=== PATIENT | male | born 1960 | race Caucasian/White ===

== ENCOUNTER → 2017-08-25 13:43 | Outpatient (CLI) | payer MEDICAID, SELFPAY ==
--- NOTE | 2017-08-25 13:49 | VDLE_ITS ---
Reason For Study: LEG PAIN RIGHT LEFT GSV is normal. CFV is compressible, spontaneous, phasic, CFV is compressible, spontaneous, phasic, competent, and demonstrates normal competent and demonstrates normal augmentation. augmentation. FV is compressible, spontaneous, phasic, competent and demonstrates normal augmentation. POP V is compressible, spontaneous, phasic, competent and demonstrates normal augmentation. T/P Trunk is compressible. PTV is compressible. RT PerV is compressible. SSV partially compressible with intraluminal echoes from mid calf to ankle. Procedure Exam performed in department. A preliminary report was called and/or faxed to Ted Sandoval. Interpretation Summary Deep veins of the right lower extremity are patent and compressible segmentally. There is no evidence of right lower extremity deep vein thrombosis. Valvular competence appears intact within the proximal deep venous system on the right . The right greater saphenous vein appears patent and compressible segmentally. Acute and chronic superficial thrombophlebitis is noted in the right small saphenous vein from the right mid-calf to the ankle. Ordering Physician: ANGELIC VALLADARES Referring Physician: Tresa Kaye Performed By: Shivani Kelely RVT
== END ==
DX: M79.604 Pain in right leg (principal)
CPT/HCPCS: 93971

== ENCOUNTER 2017-08-26 12:51 | Emergency (ER) | payer MEDICAID, SELFPAY ==
[2017-08-26 12:52] VITALS: BP 176/115; PULSE 73; RESP 16; TEMP 36.2; O2SAT 100; BMI 21.9
--- NOTE | 2017-08-26 13:26 | ED.VISSUMM ---
- ER Visit Summary Date of Service: 08/26/17 Chief Complaint: [Right leg pain] History of Present Illness: The patient is a 57 M [presents to the emergency department with complaint of pain in his right leg for 3-4 months. Patient denies any trauma. Patient states that he was seen by the [facility] yesterday and had venous Doppler obtained of his right lower extremity which showed some superficial clot but is not scheduled to see the [facility] until 3 days from today. Patient denies any chest pain or shortness of breath. Patient denies any trauma to his leg. Patient denies recent travel or surgery. Patient states that he is having pain with walking. Patient does have a history of chronic back pain. Patient denies any pain in his buttock but states that the pain starts mid thigh and goes down to the foot.] Physical Examination: [HEENT-PERRLA, EOMI. Cranial nerves II through XII grossly intact. TMs clear. Mucous membranes moist. No adenopathy. Cardiovascular-regular rate and rhythm without murmur or ectopy Lungs-clear to auscultation, chest wall stable without crepitus or subcu emphysema Abdomen-normoactive bowel sounds, soft, nontender, no rebound or rigidity, no peritoneal signs. Back exam-no significant tenderness over the thoracic or lumbar spine. Patient has negative straight leg raises bilaterally. Deep tendon reflexes are plus 2 out of 4 bilaterally at the patella and Achilles. Patient has normal L5 extension. Extremities-intact ?4, normal range of motion, normal pulses, atraumatic]. Patient has some mild edema noted especially around the ankle with +1 pitting. Patient has some superficial varicosities noted. Patient has normal sensation. Patient has normal strength in both lower extremities. Test Results: [None indicated] Emergency Department Course and Treatment: [I did review the patient's venous duplex from yesterday which did show superficial saphenous vein to be partially compressible with intraluminal echoes from mid calf to ankle. There was no evidence of DVT.] Treatment Plan: [Patient advised to use ibuprofen and warm compresses to the calf. Patient will be given a prescription for Lindon for severe pain. Agent to keep his appointment in 3 days with the [facility].] Disposition: Discharge to home in stable condition. Patient advised to return if worsening pain, weakness in the extremity, redness or fever, or condition should worsen in any way. [] Impression: [Leg pain Superficial thrombophlebitis right leg] This note was generated with S[employer] dictation software. It may contain incorrect words, spelling, and punctuation that were not noted in review of the chart prior to signing ED Disposition - Plan for ED Patient: Chief Complaint: Lower Extremity Injury Referrals: Олег Ramirez,Victoria Lynn [Primary Care Provider] -
--- NOTE | 2017-08-26 13:30 | ED.DCSUM_ITS ---
- ER Visit Summary Date of Service: 08/26/17 Chief Complaint: [Right leg pain] History of Present Illness: The patient is a 57 M [presents to the emergency department with complaint of pain in his right leg for 3-4 months. Patient denies any trauma. Patient states that he was seen by the [facility] yesterday and had venous Doppler obtained of his right lower extremity which showed some superficial clot but is not scheduled to see the [facility] until 3 days from today. Patient denies any chest pain or shortness of breath. Patient denies any trauma to his leg. Patient denies recent travel or surgery. Patient states that he is having pain with walking. Patient does have a history of chronic back pain. Patient denies any pain in his buttock but states that the pain starts mid thigh and goes down to the foot.] Physical Examination: [HEENT-PERRLA, EOMI. Cranial nerves II through XII grossly intact. TMs clear. Mucous membranes moist. No adenopathy. Cardiovascular-regular rate and rhythm without murmur or ectopy Lungs-clear to auscultation, chest wall stable without crepitus or subcu emphysema Abdomen-normoactive bowel sounds, soft, nontender, no rebound or rigidity, no peritoneal signs. Back exam-no significant tenderness over the thoracic or lumbar spine. Patient has negative straight leg raises bilaterally. Deep tendon reflexes are plus 2 out of 4 bilaterally at the patella and Achilles. Patient has normal L5 extension. Extremities-intact ?4, normal range of motion, normal pulses, atraumatic]. Patient has some mild edema noted especially around the ankle with +1 pitting. Patient has some superficial varicosities noted. Patient has normal sensation. Patient has normal strength in both lower extremities. Test Results: [None indicated] Emergency Department Course and Treatment: [I did review the patient's venous duplex from yesterday which did show superficial saphenous vein to be partially compressible with intraluminal echoes from mid calf to ankle. There was no evidence of DVT.] Treatment Plan: [Patient advised to use ibuprofen and warm compresses to the calf. Patient will be given a prescription for Omega for severe pain. Agent to keep his appointment in 3 days with the [facility].] Disposition: Discharge to home in stable condition. Patient advised to return if worsening pain, weakness in the extremity, redness or fever, or condition should worsen in any way. [] Impression: [Leg pain Superficial thrombophlebitis right leg] This note was generated with [employer] dictation software. It may contain incorrect words, spelling, and punctuation that were not noted in review of the chart prior to signing ED Disposition - Plan for ED Patient: Chief Complaint: Lower Extremity Injury Referrals: Олег Ramirez,Victoria Lynn [Primary Care Provider] -
--- NOTE | 2017-08-26 13:32 | DCINST.ED_ITS ---
ED Disposition - Plan for ED Patient: Chief Complaint: Lower Extremity Injury Instructions: ED Phlebitis Superficial Prescriptions: Hydrocodone Bitart/Apap 5-325 [[place] 5/325] 1 - 2 tab PO Q4H PRN PRN 5 Days #20 tab PRN Reason: Pain Referrals: Олег Ramirez,Victoria Lynn [Primary Care Provider] - 3-5 Days
[2017-08-26 13:38] VITALS: BP 139/99; PULSE 71; RESP 16; O2SAT 97
== END 2017-08-26 13:39 | disposition home or self-care (01) ==
PROVIDERS: Emergency Provider Emergency Medicine
DX: I80.01 Phlebitis and thrombophlebitis of superficial vessels of right lower extremity (principal); M79.604 Pain in right leg; M54.9 Dorsalgia, unspecified; G89.29 Other chronic pain; I10 Essential (primary) hypertension; Z79.51 Long term (current) use of inhaled steroids; Z79.899 Other long term (current) drug therapy
CPT/HCPCS: 99282

== ENCOUNTER 2018-02-06 08:55 | Emergency (ER) | payer MEDICAID, SELFPAY ==
[2018-02-06 08:56] VITALS: BP 155/105; PULSE 92; RESP 14; TEMP 35.9; BMI 19.5
--- NOTE | 2018-02-06 09:05 | ED.VISSUMM ---
- ER Visit Summary Date of Service: 02/06/18 Chief Complaint: Meehan pain bilaterally History of Present Illness: The patient is a 57 M who presents with 2-3 months of tenderness anterior meehan region. No calf pain no edema no fever or chills. Physical Examination: Otherwise normal exam he has got tenderness over the anterior shins, there is no calf tenderness negative Homans no edema. There are no nodes present. Emergency Department Course and Treatment: There are no signs or symptoms of DVT, there is no cellulitis no abscess. This is likely shinsplints he does walk quite a bit. He is told to wear restrictive socks or hose and otherwise will be discharged with anti-inflammatories. Discharge stable condition Impression: Shinsplints This note was generated with [employer] dictation software. It may contain incorrect words, spelling, and punctuation that were not noted in review of the chart prior to signing ED Disposition - Plan for ED Patient: Disposition: Home or Assisted Living Chief Complaint: Wound Instructions: Meehan Splints Prescriptions: Naproxen [Naprosyn] 500 mg PO BID PRN #20 tab Referrals: Victoria Cloud [Primary Care Provider] - 3-5 Days
--- NOTE | 2018-02-06 09:08 | ED.DCSUM_ITS ---
- ER Visit Summary Date of Service: 02/06/18 Chief Complaint: Meehan pain bilaterally History of Present Illness: The patient is a 57 M who presents with 2-3 months of tenderness anterior meehan region. No calf pain no edema no fever or chills. Physical Examination: Otherwise normal exam he has got tenderness over the anterior shins, there is no calf tenderness negative Homans no edema. There are no nodes present. Emergency Department Course and Treatment: There are no signs or symptoms of DVT , there is no cellulitis no abscess. This is likely shinsplints he does walk quite a bit. He is told to wear restrictive socks or hose and otherwise will be discharged with anti-inflammatories. Discharge stable condition Impression: Shinsplints This note was generated with [employer] dictation software. It may contain incorrect words, spelling, and punctuation that were not noted in review of the chart prior to signing ED Disposition - Plan for ED Patient: Disposition: Home or Assisted Living Chief Complaint: Wound Instructions: Meehan Splints Prescriptions: Naproxen [Naprosyn] 500 mg PO BID PRN #20 tab Referrals: Victoria Cloud [Primary Care Provider] - 3-5 Days
== END 2018-02-06 09:38 | disposition home or self-care (01) ==
PROVIDERS: Emergency Provider Emergency Medicine; Family Provider Student in an Organized Health Care Education/Training Program; PCP Student in an Organized Health Care Education/Training Program
DX: S86.892A Other injury of other muscle(s) and tendon(s) at lower leg level, left leg, initial encounter (principal); S86.891A Other injury of other muscle(s) and tendon(s) at lower leg level, right leg, initial encounter; X58.XXXA Exposure to other specified factors, initial encounter; Y93.89 Activity, other specified; Y92.89 Other specified places as the place of occurrence of the external cause; Y99.8 Other external cause status
CPT/HCPCS: 99282

== ENCOUNTER 2018-02-12 08:30 | Outpatient (RCR) | payer MEDICAID, SELFPAY ==
--- NOTE | 2018-01-05 12:27 | HP.PTEVAL_ITS ---
Patient's Visit Information PRASHANT CONNOR is a 57 year old M referred to Physical Therapy by Rei Morgan with a diagnosis of RADICULOPATHY LUMBAR REGION. Date of Evaluation: 01/05/18 Physical Therapist: Amanda Arauz - Visit Plan Frequency: 2-3x /Week Duration: 4-6 Weeks Plan: *NO LIFTING > 5 LBS*. *PATIENT HAS TUBES IN HIS EARS. AQUATIC THERAPY FOR PAIN RELEIF, POSTURE CORRECTION/STRENGTHENING, INSTRUCTION IN APPROPRIATE BODY MECHANICS AND ACTIVITY MODIFICATIONS. DLS STARTING WITH A NEUTRAL SPINE PROGRESSING ROM TOLERATED. NICHOLAS LE ROM, STRETCHING AND STRENGTHENING. HEP INSTRUCTION. - Subjective Subjective: Work/Leisure: UNEMPLOYEED. Disability: YES. WENT ON DISABILITY LAST YEAR FOR DDD AND NERVE DAMAGE. NECK PROBLEMS. Present symptoms: NICHOLAS LOW BACK PAIN. NICHOLAS LE PAIN, NUMBNESS AND TINGLING TO ANKLES. PATIENT DENIES FOOT SX'S. Present since: A LONG TIME AGO . Pain Scale: WORST 6/10, LEAST 4/ 10. Currently: 5/10. Commenced as a result of: A LOT OF HEAVY LIFTING . Symptoms at onset: BACK. Worse: BENDING, LIFTING, CLEANING HOUSE. Better: LYING DOWN. Disturbed sleep: NO. Previous history/Previous treatment: NO LOW BACK SURGERY. NO LOUIS'S IN LOW BACK. CHIROPRACTOR FOR LOW BACK YEARS AGO. Coughing/sneezing/straining: NEGATIVE. Gait: PATIENT REPORTS HE CAN'T WALK VERY FAR BUT HE DOES WALK FROM HIS PLACE TO A GROCERY STORE ABOUT 1/[address] STATES HE USUALLY DOES NOT USE AN AD BUT SOMETIMES A CANE. Difficulty initiating urinatin: NO. Accidents: NO MVA'S. NO FALLS SINCE LAST YEAR WHEN HE FX'D 3 RIBS - FELL OFF A LADDER CLEANING WINDOWS. Unexplained weight loss: NO. Imaging: PATIENT THINKS HE HAD X-RAYS AND MRI OF HIS LOWER BACK LAST YEAR SHOWING IT ISN'T GETTING BETTER. PMH: COPD, HTN, ALLERGIES. Recent major surgery: NECK SURGERY ABOUT 8 YEARS AGO AFTER FALLING DOWN STEPS AND BREAKING 3 DISCS. - Objective Sitting/Standing Posture: POOR. FORWARD HEAD. RETRACTED SHOULDERS. Lordosis : REDUCED. RIGHT ILIAC CREST SLIGHTLY HIGHER THAN LEFT. Lateral shift: NO. Relevant shift: N/A. Active Correction of posture: BETTER. Other Observations : INDEP GAIT INTO PT WITHOUT LOB OR ASSISTIVE DEVICE. INDEP TRANSFER SIT TO STAND WITHOUT UE ASSIST BUT DIFFICULT. Motor deficit: 5/5 NICHOLAS LE'S WITH MMT' ING. Sensory deficit: NICHOLAS LE LIGHT TOUCH INTACT AND SYMMETRICAL. ROM deficit: TIGHT NICHOLAS HS'S. TIGHT NICHOLAS GASTROC SOLEUS COMPLEX'S. Reflexes: UNABLE TO ELICIT NICHOLAS LE DTR'S. Dural Signs: NEGATIVE NICHOLAS LE'S. Lumbar mvmt loss: flex - MIN. ext - MOD TO TAYLOR. R SG - MOD. L SG - MOD. PATIENT REPORTS ONLY MILD INCREASED LOW BACK AND LEG PAIN WITH LUMBAR ROM TESTING ALL PLANES. Core strength: POOR. Palpation: NO ACUTE TENDERNESS WITH LUMBOPELVIC PALPATION. OTHER: MILD NICHOLAS LOWER LEG/ANKLE EDEMA. PATIENT REPORTS HIS DOCTOR IS AWARE OF THE SWELLING AND INSTRUCTED HIM IN LE ELEVATION. - Goals Goal 1:: DECREASE C/O LOW BACK AND NICHOLAS LE SX'S. Goal Time Frame: 4-6 Weeks Goal 2:: IMPROVE PERSONAL CARE, WALKING, SITTING, STANDING, SOCIAL LIFE, TRAVEL AND HOMEMAKING FUNCTION Goal Time Frame: 4-6 Weeks Goal 3:: INSTRUCT IN PROPHYLAXIS Goal Time Frame: 4-6 Weeks - Rehabilitation Potential Rehabilitation Potential: Good - Anticipated Interventions Patient/Client Instruction: Educate patient on: Condition, Plan of Care, Risk Factors, Benefits of Fitness Program For the Purpose of:: To improve self management Therapeutic Exercise to Include: Strength training, Body mechanics, Postural training, Flexibilty training, In an aquatic setting, Dynamic Lumbar Stabilization For the Purpose of:: To decrease pain, To decrease swelling/inflammation, To increase ROM, To improve muscle performance and motor function, To increase tolerance to activity/condition/position, To improve ability of physical actions for home/community/work/leisure, To improve gait and locomotor functions Thank you for the opportunity to evaluate your patient. For Medicare and Medicare HMO plans, please review the plan of care and approve it. It will need to be FAXED BACK to us at [phone] for Medicare purposes. Please let me know if there are questions or concerns regarding this plan of care. Physician Signature: Date:
--- NOTE | 2018-02-12 08:59 | HP.PTDCSUM_ITS ---
HP - PT D/C Summary It has been my pleasure to treat PRASHANT CONNOR under orders from Rei Morgan, for the diagnosis of RADICULOPATHY LUMBAR REGION for a total of 10 visit(s). Discharge Date: 02/12/18 Please see the following information for a summary of their discharge status. - Subjective Subjective: PATIENT REPORTS PHYSICAL THERAPY HAS HELPED LOOSEN UP MUSCLES AND BEING ABLE TO STAND UP STRAIGHT. IT ALSO TAUGHT HIM EX'S HE CAN DO AT HOME. PATIENT REPORTS HE CAN DO THE HOME EX'S ON HIS OWN BUT HE ISN'T SURE HE CAN GET TO A POOL. - Pain Bilateral Back Pain Intensity (Out of 10): 0 RLE Pain Intensity (Out of 10): 0 LLE Pain Intensity (Out of 10): 0 - Overall Improvement % Improvement: 50 - Objective Objective/Function: ALL GOALS MET. UPON EXAM, HE CONTINUES TO HAVE GOOD LE STRENGTH AND HIS POSTURE CONTROL HAS IMPROVED. Lumbar mvmt loss: flex - NIL. ext - MOD - PATIENT REPORTS THIS FEELS GOOD. R SG - MIN. L SG - MIN. PATIENT REPORTS ONLY MILD INCREASED LOW BACK ON RETURN FROM RIGHT SG. BUT OTHERWISE PATIENT REPORTS HIS BACK FELT GOOD WITH THE TESTING. Palpation: NO ACUTE TENDERNESS WITH LUMBOPELVIC PALPATION. OTHER: NO CHANGE IN LE EDEMA BUT HE REPORTS WHEN HE WEARS THE STOCKINGS IT HELPS. STATES HE GO T TWO PAIRS FROM [employer]. - Goals Goal 1:: DECREASE C/O LOW BACK AND NICHOLAS LE SX'S. Goal Progress: Goal Met Goal 2:: IMPROVE PERSONAL CARE, WALKING, SITTING, STANDING, SOCIAL LIFE, TRAVEL AND HOMEMAKING FUNCTION Goal Progress: Goal Met Goal 3:: INSTRUCT IN PROPHYLAXIS Goal Progress: Goal Met - Plan Plan: D/C TO HEP. PATIENT IS AGREEABLE. - D/C Information If there are questions or concerns regarding this patient's physical therapy, please feel free to call me at [phone]. Thank you for the referral of this patient. Sincerely, Amanda Arauz
== END 2018-02-12 19:00 | disposition home or self-care (01) ==
LOC: PT 08:30
PROVIDERS: Visit Provider Student in an Organized Health Care Education/Training Program
DX: M51.16 Intervertebral disc disorders with radiculopathy, lumbar region (principal); M51.36 Other intervertebral disc degeneration, lumbar region
CPT/HCPCS: 97113; 97162; 97164; 97530

== ENCOUNTER 2018-04-07 09:49 | Outpatient (RCR) | payer MEDICAID, SELFPAY ==
--- NOTE | 2018-04-07 13:29 | HP.PTEVAL_ITS ---
Patient's Visit Information PRASHANT CONNOR is a 57 year old M referred to Physical Therapy by Rei Mrogan with a diagnosis of Bilateral leg pain and balance disorder.. Date of Evaluation: 04/07/18 Physical Therapist: Anni Merritt - Visit Plan Plan: Pt. here for scooter assessment, will f/u with after determining eligibility for scooter. - Subjective Subjective: Pt. believes needs scooter because cannot walk far distances. Pt. limited by pain and loss of endurance. Walking for entire life, no driving license. 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 Can walk 1 mile before needs to s top. Posterior leg pain while walking, lumbar and posterior leg pain when sit after walk. Pain during walking 7/10, when rest 7/10. Worst pain in back this past week 5/10, best 3/10. Worst posterior leg pain 8/10, best 7/10. Relief when sitting if have not recently walked. Pain described as tightness in posterior legs. LBP described as achy. Seated with legs extended and elevated provides relief. Back pain relieved when supine. Sleep pretty well, just get up for restroom, pain does not wake up. Some tingling and numbness down to ankle, more signifcant in R leg; describes Raynauds in hands. Went to ER few months ago for bumps on leg, dx with meehan splints. Instructed to keep elevated; gave Vikodon-relieved some pain and relaxing. Ibprofen as needed provides a little relief. Put heat on back which helps. Ramp into apartment, standard doorway size; no stairs. 1 story, 3 rooms. No trouble getting around because there are things to hold on to including gaming, doorways, table. Always reaching for something to keep balance. 2 rugs in bedroom and 1 in bathroom. Shower/bathub threshold to step into and get to shower chair. Fearful when getting out. No trouble getting into bed. No trouble cooking or cleaning; difficult putting socks on. No AD because everything close together in apartment. Noticed legs giving out and losing balance once and a while. Pt. reports having trouble with ear drums being clogged and causing dizziness; never dx and tx;been going on for whole life. No recent falls; near fall long time ago but caught self. No difference in loss of balance in public with traffic. Sometimes lightheaded and see stars once and awhile, if seated or if stand to fast; has been occuring throughout life. Have not told physician about seeing stars. Does not drink much water, prefers iced tea. Live at home alone with cat; has not tripped over cat. Hernia year ago, tubes in ear every year. Take Rx medication but pt. claims not sure what for: gabatrin, allergy, HTN medication and 2 water pills. No changes in bowel/bladder. - Pain posterior bilat. leg Pain Intensity (Out of 10): 7 - Objective Gait: leans L as ambulate, forward trunk lean, good arm swing, functional mitzi- ambulated 800 feet in clinic. Posture: R shoulder elevated/L shoulder depressed, rounded shoulders, prefers to sit with both legs extended. Stairs: ascend reciprocally with 1 HR, slightly decreased mitzi but under control; descend reciprocally with 2 HR, moderate decrease in mitzi but under control. Dermatomes: L4 dermatome pt. described as feeling different but able to differentiate L vs. R. AROM: Lumbar flex., ext. rotation WFL, lat. flex bilat. to knee. Hip, knee, ankle WFL. Heel raise 100% and toe raise 50% with UE support on table. Strength: LE 5/5 throughout. Flexibility: hamstring mild restriction; gastroc and soleus moderate restriction. Palpation: no deformity along medial border R tibia; muscular hernia lateral anterior leg R side and along medial tibial border on L leg. Balance SL on L 7 seconds and on R 5 seconds with single hand support on table. Reflexes: patellar 2+ bilat. - Rehabilitation Potential Physical Therapy Diagnosis: Pt. presents with hypomobility. Moderate bilateral gastroc and soleus tightness and pain along with lumbar pain limiting patient from ambulating distances greater than one mile without pain. Rehabilitation Potential: Fair - Anticipated Interventions Thank you for the opportunity to evaluate your patient. For Medicare and Medicare HMO plans, please review the plan of care and approve it. It will need to be FAXED BACK to us at [phone] for Medicare purposes. Please let me know if there are questions or concerns regarding this plan of care. Physician Signature: Date:
== END 2018-04-07 19:00 | disposition home or self-care (01) ==
LOC: PT 09:49
PROVIDERS: Family Provider Student in an Organized Health Care Education/Training Program; PCP Student in an Organized Health Care Education/Training Program; Visit Provider Student in an Organized Health Care Education/Training Program
DX: M79.604 Pain in right leg (principal); M79.605 Pain in left leg; R26.89 Other abnormalities of gait and mobility
CPT/HCPCS: 97161

== ENCOUNTER 2020-10-24 13:32 | Emergency (ER) | payer MEDICARE, SELFPAY ==
[2020-10-24 13:32] VITALS: BP 146/110; PULSE 82; RESP 18; TEMP 36.8; O2SAT 99; BMI 21.1
--- NOTE | 2020-10-24 14:16 | ED.VISSUMM ---
- ER Visit Summary Date of Service: 10/24/20 Chief Complaint: Dysuria and difficulty urinating History of Present Illness: The patient is a 60 M with hypertension. States 2 weeks ago he was diagnosed with a UTI at an urgent care. Was placed on antibiotics felt it got better since last night has been having trouble urinating again. Denies any fever or chills. Initially with a UTI thought there was a small amount of blood he has not noticed any blood this time. No clots. He is on no blood thinners. No prostate history. No history of any kidney or bladder disease. He did urinate when he first got here for urinalysis. Physical Examination: Middle-aged male no acute distress vital signs stable afebrile. HEENT exam unremarkable. Neck nontender no lymphadenopathy. Lungs clear to auscultation. Heart regular rhythm no murmur. Abdomen soft nontender normal bowel sounds no peritoneal signs. Nondistended bladder. External exam unremarkable. Circumcised male. No masses. Moving all 4 extremities. No edema. Neurologically patient is awake alert with no focal motor deficits. Test Results: Seizure white count of 10. Hemoglobin 17. No bands chemistries unremarkable sodium 134 normal creatinine gap. Creatinine 0.9. Urinalysis 250 gross blood. 50-100 whites 50-100 reds no epithelial cells no bacteria a culture was sent. Bladder scan 475 post void residual. Repeat exam no change patient is doing well. He and I discussed my concern for urinary retention and the need for Allison catheter. Also possibly a UTI and would start him on antibiotics. Emergency Department Course and Treatment: Middle-aged male difficulty urinating. Consider BPH versus UTI versus other. Screening labs and urinalysis along with a bladder scan are being obtained. Treatment Plan: Allison catheter placed 16 Tristanian and follow-up with Dr. Duran of urology. Keflex 4 times daily for 10 days for possible UTI and urine culture sent. Disposition: Discharge Impression: Acute dysuria and urinary retention Rule out UTI Allison catheter placed This note was generated with [employer] dictation software. It may contain incorrect words, spelling, and punctuation that were not noted in review of the chart prior to signing ED Disposition - Plan for ED Patient: Referrals: Rei Morgan DO [Primary Care Provider] -
[2020-10-24 14:30] LABS: Bacteria 0 SEEN /hpf (None Seen); Color, Urine Straw (Yellow); Glucose, Dipstick Normal (Normal); Ketone-Dipstick Negative (Negative); Leukocyte Esterase-Dipstick 500 /ul (Negative); Mucous, Urine 0 SEEN /hpf (<or=2+); Nitrite-Dipstick Negative (Negative); Occult Blood-Urine 250 /ul (Negative); Protein-Dipstick 500 mg/dl (Negative); Squamous Epithelial Cells - UA 0 SEEN /hpf (0-5); Urine Bilirubin Dipstick Negative (Negative); Urine Clarity Cloudy (Clear); Urine Urobilinogen Normal (Normal)
[2020-10-24 14:37] LABS: Red Blood Cells-Urine 50-100 SEEN /hpf (0-5); White Blood Cells 50-100 SEEN /hpf (0-5)
[2020-10-24 14:39] LABS: Absolute Lymphocyte Count 1.37 X10^3/uL (0.83-4.51); Absolute Neutrophil Count 8.5 X10^3/uL (2.0-7.7); Basophil# 0.06 X10^3/uL; Basophil% 0.6 % (0-1); Eosinophil# 0.02 X10^3/uL; Eosinophils% 0.2 % (0-5); Hematocrit 49.7 % (40-54); Hemoglobin 17.2 g/dL (13.0-16.5); Lymphocyte # 1.37 X10^3/ul (0.83-4.51); Lymphocyte % 12.6 % (19-41); Mean Corp Hgb Conc 34.6 g/dL (32-36); Mean Corpuscular Hgb 33.1 pg (27.0-32.0); Mean Corpuscular Volume 95.6 fL (80-94); Mean Platelet Vol. 9.5 fl (6.2-12.0); Monocyte# 0.87 X10^3/uL; NRBC Flagged by Analyzer 0 % (0-5); Neutrophil # 8.46 X10^3/uL (2.7-7.7); Platelet Count 245 K/mm3 (150-450); RBC Distribution Width CV 12.8 % (11.6-14.6); RBC Distribution Width SD 45.5 fl (35.1-43.9); White Blood Count 10.9 K/mm3 (4.4-11.0)
[2020-10-24 14:52] LABS: Anion Gap 6 (5-15); BUN 12 mg/dL (7-18); BUN/Creat Ratio 12.6 RATIO (10-20); Calcium,Total 9.1 mg/dL (8.5-10.1); Chloride 98 mmol/L (98-107); Creatinine, Serum 0.96 mg/dL (0.70-1.30); EST Glomerular Filtration Rate 86 mL/min (>60); Est Glom Filt Rate - Afr Amer 104 mL/min (>60); Estimated Creatinine Clearance 73.89 ml/min; Glucose 101 mg/dL (74-106); Potassium 3.6 mmol/L (3.5-5.1); Sodium Level 134 mmol/L (136-145)
--- NOTE | 2020-10-24 15:07 | ED.DEP ---
ED Disposition - Plan for ED Patient: Disposition: Home or Assisted Living Instructions: ED Urinary Retention, Male Prescriptions: Cephalexin [Keflex] 500 mg PO Q6 #40 capsule Prescription Printed Referrals: Rei Morgan DO [Primary Care Provider] - As Needed Kali Burks MD [STAFF PHYSICIAN] - 3-5 Days Additional Instructions: Empty the Allison catheter when ever it is nearly full. Take the antibiotic Keflex 1 pill 4 times a day till gone. You have been prescribed this for 10 days. Call and follow-up with Dr. Ramsey Burks with urology or a urologist of your choice.
== END 2020-10-24 15:31 | disposition home or self-care (01) ==
PROVIDERS: Emergency Provider Emergency Medicine; PCP Student in an Organized Health Care Education/Training Program
DX: R30.0 Dysuria (principal); R33.9 Retention of urine, unspecified; I10 Essential (primary) hypertension; Z79.899 Other long term (current) drug therapy
CPT/HCPCS: 51702; 80048; 81001; 85025; 87077; 87086; 87088; 87186; 99284; A4216

== ENCOUNTER 2021-02-15 10:25 | Emergency (ER) | payer MEDICARE, SELFPAY ==
[2021-02-15 10:26] VITALS: BP 152/93; PULSE 57; RESP 16; TEMP 36.3; O2SAT 99; BMI 19.8
[2021-02-15 10:31] VITALS: BP 152/93; PULSE 57; RESP 16; O2SAT 99
--- NOTE | 2021-02-15 10:37 | EX.ED.DYSGE1 ---
HPI History of Present Illness Chief Complaint: Complaint Detail of Chief Complaint: Difficulty urinating since February 07 Narrative Narrative: Patient presents to the emergency department complaining of difficulty urinating throughout the day since February 07 when he had his Allison catheter removed. Patient states that he had some sort of a surgical procedure that was supposed to help him urinate more easily. His surgery was November 14 in [place]. Patient states that at night he is able to urinate because he can relax more but not able to urinate during the day. He complained of some burning with urination today. Patient states that he was supposed to get a urine sample to turn into the urologist office. He denies any fevers or chills or sweats. Prior similar symptoms: Yes [facility] Medical History (Updated 02/15/21 @ 11:[address] Mesfin Rajput DO) COPD (chronic obstructive pulmonary disease) Hypertension Home Medications bupropion HCl 150 mg PO BID 10/24/20 [History Last Taken Unknown] gabapentin 200 mg PO DAILY 10/24/20 [History Last Taken Unknown] hydrochlorothiazide 25 mg PO DAILY 10/24/20 [History Last Taken Unknown] metoprolol succinate 25 mg PO DAILY 10/24/20 [History Last Taken Unknown] amlodipine 5 mg PO DAILY 02/15/21 [History Last Taken Unknown] aspirin 81 mg PO DAILY 02/15/21 [History Last Taken Unknown] cephalexin 500 mg PO Q6 #28 capsule 02/15/21 [Rx Last Taken Unknown] oxybutynin chloride 10 mg PO DAILY 02/15/21 [History Last Taken Unknown] tiotropium bromide [Spiriva Respimat] 1 puff INHALATION DAILY 02/15/21 [History Last Taken Unknown] Allergy/AdvReac Type Severity Reaction Status Date / Time bee venom protein (honey bee) Allergy Anaphylaxis Verified 02/15/21 10:26 Social History Smoking Status: Former smoker ROS ROS ED Constitutional Constitutional ED: Reports systems reviewed and no addt'l complaints, except as documented; Denies body ache(s), change in weight or chills Eyes Eyes: Denies acute decrease in peripheral vision, change in vision, double vision or loss of vision ENT ENT ED: Reports none; Denies ear pain, lip swelling, loss taste/smell, neck pain, otalgia or sore throat Cardiovascular Cardiovascular: Reports none; Denies abdominal pain, chest pain with activity, leg edema, lightheadedness, palpitations, rapid heart rate or syncope Respiratory/Chest Respiratory/Chest: Reports none; Denies change in mental status, dry cough, dyspnea, hemoptysis, shortness of breath at rest or shortness of breath with exertion Gastrointestinal Gastrointestinal: Reports none; Denies abdominal pain, change in stool character, diarrhea, hematemesis, hematochezia, melena, rectal bleeding or vomiting Genitourinary Genitourinary ED: Reports none, dysuria and other Details: Urinary retention ; Denies abdominal discomfort, anuria, genital pain or polyuria Musculoskeletal Musculoskeletal: Reports none; Denies arthralgias, back pain, difficulty walking, extremity pain, muscle weakness or myalgias Integumentary Reports none; Denies abscess or rash Neurologic Neurologic: Reports none; Denies abnormal gait, confusion, focal weakness, frequent falls, headache(s), loss of vision, numbness, paresthesias, radicular pain, vertigo or weakness Psychiatric Psychiatric: Reports systems reviewed and no addt'l complaints, except as documented and none; Denies behavioral changes, confusion, difficulty concentrating, hallucinations, suicidal ideation, tactile hallucinations or visual hallucinations Endocrine Endocrinology: Denies none, cold intolerance, excessive sweating, fatigue or heat intolerance Hematologic/Lymphatic Hematologic/Lymphatic: Reports none; Denies anemia, easy bleeding or easy bruising Allergic/Immunologic Allergic/Immunologic ED: Denies as per HPI, none, lip swelling, mouth swelling, throat swelling, tongue swelling or hives EXAM Physical Exam Const Vital Signs: 02/15/21 10:26 02/15/21 10:31 Temperature 97.4 F L Temperature Source Temporal Pulse Rate 57 L 57 L Respiratory Rate 16 16 Blood Pressure 152/93 H 152/93 H Blood Pressure Mean 112 112 Pulse Ox 99 99 Oxygen Delivery Method Room Air Room Air Positive well nourished and well developed General Appearance ED: well developed and NAD HEENT Reports TM's clear and moist mucous membranes normocephalic and atraumatic; Negative for trauma or tenderness Tympanic Membrane ED: Yes TM's clear Eyes PERRL and EOMs intact bilaterally General Eye ED: Negative for pale conjunctiva or scleral icterus Neck no lymphadenopathy, supple and no JVD General: Negative for tenderness Chest Wall inspection of chest normal and palpation of chest normal Chest: Negative for tenderness Resp normal respiratory effort and clear to auscultation bilaterally Effort and Inspection: Negative for respiratory distress or pain with movement Auscultation: Negative for rhonchi, wheezes or diminished lung sounds Cardio regular rate, regular rhythm, S1 normal heart sound, S2 normal heart sound and no murmurs Peripheral Pulses: pulses 2+ throughout GI normal to inspection, nondistended, normoactive bowel sounds, soft to palpation, non-tender, non-distended and no masses Back/Spine no CVA tenderness and no thoracic nor lumbar tenderness Extremity normal to inspection General Extremety ED: Negative for edema General Extremity: Negative for edema Neuro oriented x3, CN's II-XII intact bilaterally, no sensory deficits noted and gait normal Sensorium / Orientation: awake, alert, oriented to person, oriented to place and oriented to time Motor Exam: strength 5/5 throughout and strength abnormal Psych mental status grossly normal Skin no rashes or lesions noted and no wounds MDM MDM MDM Narrative Medical decision making narrative: Patient urinalysis had 500 leukocyte esterase and 10-25 WBCs but no bacteria noted. I did send off a urine culture and will start patient empirically on Keflex for 7 days. Patient advised to follow-up with his urologist. His bladder scan here only showed 70 cc of urine and he was able to give us a urine sample. Lab Data Attestation: I reviewed the patient's lab results. Labs: Laboratory Results - last 24 hr 02/15/21 02/15/21 02/15/21 10:45 10:45 11:00 WBC 7.7 RBC 4.47 L Hgb 13.9 Hct 41.7 MCV 93.3 MCH 31.1 MCHC 33.3 RDW Std Deviation 44.7 H RDW Coeff of Cr 13.1 Plt Count 275 MPV 9.8 Immature Gran % (Auto) 0.600 Neut % (Auto) 58.6 Lymph % (Auto) 28.8 [place] % (Auto) 9.4 Eos % (Auto) 1.8 Baso % (Auto) 0.8 Absolute Neuts (auto) 4.5 Absolute Lymphs (auto) 2.23 Nucleated RBC % 0 Sodium 137 Potassium 4.6 Chloride 103 Carbon Dioxide 27.0 Anion Gap 7 BUN 17 Creatinine 0.99 Estim Creat Clear Calc 67.27 Est GFR (MDRD) Af Amer 100 Est GFR (MDRD) Non-Af 83 BUN/Creatinine Ratio 17.2 Glucose 93 Calcium 9.4 Urine Color Yellow Urine Clarity Clear Urine pH 6.0 Ur Specific [place] 1.030 Urine Protein 30 H Urine Glucose (UA) Normal Urine Ketones Negative Urine Occult Blood Negative Urine Nitrite Negative Urine Bilirubin Negative Urine Urobilinogen Normal Ur Leukocyte Esterase 500 H Urine RBC 0 SEEN Urine WBC 10-25 SEEN Ur Squamous Epith Cells 0 SEEN Urine Bacteria 0 SEEN Urine Mucus 0 SEEN Discharge Plan Triage Chief Complaint: Complaint ED Provider: Mesfin Rajput Dx/Rx/DC Orders Clinical Impression: Dysuria Instructions: ED Bladder Infection, Male (Adult) Prescriptions: New cephalexin [cephalexin] 500 MG capsule 500 mg PO Q6 Qty: 28 RF: 0 No Action gabapentin 300 MG capsule 200 mg PO DAILY RF: 0 hydrochlorothiazide 25 MG tablet 25 mg PO DAILY RF: 0 metoprolol succinate 25 MG tablet extended release 24 hr 25 mg PO DAILY RF: 0 bupropion HCl 150 MG tablet sustained-release 12 hr 150 mg PO BID RF: 0 oxybutynin chloride 10 mg tablet extended release 24hr 10 mg PO DAILY RF: 0 amlodipine 5 mg tablet 5 mg PO DAILY RF: 0 aspirin 81 mg tablet,delayed release (DR/EC) 81 mg PO DAILY RF: 0 Spiriva Respimat 2.5 mcg/actuation mist 1 puff INHALATION DAILY RF: 0 Primary Care Provider: Rei Morgan Referrals: Rei Morgan DO [Primary Care Provider] - 3-5 Days Activity Restrictions/Additional Instructions: See your urologist in 3 to 5 days.
[2021-02-15 10:54] LABS: Absolute Lymphocyte Count 2.23 X10^3/uL (0.83-4.51); Absolute Neutrophil Count 4.5 X10^3/uL (2.0-7.7); Basophil# 0.06 X10^3/uL; Basophil% 0.8 % (0-1); Eosinophil# 0.14 X10^3/uL; Eosinophils% 1.8 % (0-5); Hematocrit 41.7 % (40-54); Hemoglobin 13.9 g/dL (13.0-16.5); Lymphocyte # 2.23 X10^3/ul (0.83-4.51); Lymphocyte % 28.8 % (19-41); Mean Corp Hgb Conc 33.3 g/dL (32-36); Mean Corpuscular Hgb 31.1 pg (27.0-32.0); Mean Corpuscular Volume 93.3 fL (80-94); Mean Platelet Vol. 9.8 fl (6.2-12.0); Monocyte# 0.73 X10^3/uL; Monocyte% 9.4 % (0-10); NRBC Flagged by Analyzer 0 % (0-5); Neutrophil # 4.52 X10^3/uL (2.7-7.7); Neutrophil % 58.6 % (47-70); Platelet Count 275 K/mm3 (150-450); RBC Distribution Width CV 13.1 % (11.6-14.6); RBC Distribution Width SD 44.7 fl (35.1-43.9); Red Blood Count 4.47 M/mm3 (4.6-6.2); White Blood Count 7.7 K/mm3 (4.4-11.0)
[2021-02-15 11:05] LABS: Anion Gap 7 (5-15); BUN 17 mg/dL (7-18); BUN/Creat Ratio 17.2 RATIO (10-20); Calcium,Total 9.4 mg/dL (8.5-10.1); Chloride 103 mmol/L (98-107); Creatinine, Serum 0.99 mg/dL (0.70-1.30); EST Glomerular Filtration Rate 83 mL/min (>60); Est Glom Filt Rate - Afr Amer 100 mL/min (>60); Estimated Creatinine Clearance 67.27 ml/min; Glucose 93 mg/dL (74-106); Potassium 4.6 mmol/L (3.5-5.1); Sodium Level 137 mmol/L (136-145)
[2021-02-15 11:08] LABS: Bacteria 0 SEEN /hpf (None Seen); Mucous, Urine 0 SEEN /hpf (<or=2+); Red Blood Cells-Urine 0 SEEN /hpf (0-5); Squamous Epithelial Cells - UA 0 SEEN /hpf (0-5)
[2021-02-15 11:09] LABS: Color, Urine Yellow (Yellow); Glucose, Dipstick Normal (Normal); Ketone-Dipstick Negative (Negative); Leukocyte Esterase-Dipstick 500 /ul (Negative); Nitrite-Dipstick Negative (Negative); Occult Blood-Urine Negative /ul (Negative); Protein-Dipstick 30 mg/dl (Negative); Urine Bilirubin Dipstick Negative (Negative); Urine Clarity Clear (Clear); Urine Urobilinogen Normal (Normal)
[2021-02-15 11:17] LABS: White Blood Cells 10-25 SEEN /hpf (0-5)
[2021-02-15] MEDS: Cephalexin 250 MG Capsule 500 MG PO (12:45)
[2021-02-15 12:49] VITALS: PULSE 62; RESP 17; O2SAT 98
== END 2021-02-15 12:50 | disposition home or self-care (01) ==
LOC: ED 11:06
PROVIDERS: Emergency Provider Emergency Medicine; PCP Student in an Organized Health Care Education/Training Program
DX: R30.0 Dysuria (principal); J44.9 Chronic obstructive pulmonary disease, unspecified; I10 Essential (primary) hypertension; Z79.899 Other long term (current) drug therapy; Z79.82 Long term (current) use of aspirin; Z87.891 Personal history of nicotine dependence
CPT/HCPCS: 80048; 81001; 85025; 87086; 87088; 99284; A4216

== ENCOUNTER → 2021-03-30 06:14 | Outpatient (CLI) | payer MEDICARE, MEDICAID, SELFPAY ==
--- NOTE | 2021-03-30 06:18 | ECHOD_ITS ---
Reason For Study: S/P [facility] Procedure This was a 2D Doppler, Color Flow transthoracic echocardiogram. The exam was of adequate technical quality. Exam performed in department. Left Ventricle Normal LV size. Left ventricular systolic function is normal. The estimated ejection fraction is 65 %. No evidence for diastolic dysfunction. Right Ventricle Normal RV size. Normal systolic function. Atria Normal left atrium. Normal right atrium. No doppler evidence for ASD. Mitral Valve There is no mitral annular calcification. Normal mitral valve. Trivial mitral valve insufficiency. Tricuspid Valve Normal tricuspid valve. Mild tricuspid valve insufficiency. Right ventricular systolic pressure estimated to be 23 mmHg. Aortic Valve Trisinus/trileaflet aortic valve. Normal aortic valve. Pulmonic Valve The pulmonic valve is not well visualized. Trivial pulmonic valve insufficiency. Great Vessels Normal sized aortic root. Pericardium/Pleural No pericardial effusion. MMode/2D Measurements & Calculations LVIDd: 4.6 cm IVSd: 1.1 cm Ao root diam: 3.7 cm LVIDs: 2.4 cm LVPWd: 1.1 cm RVDd: 3.1 cm FS: 48.6 % LAV(MOD-bp): 44.3 ml LVAd ap4: 28.6 cm2 LVAd ap2: 26.7 cm2 LAV(MOD-bp) Indexed: 25.4 ml/m2 LVLd ap4: 7.8 cm LVLd ap2: 7.6 cm LAV(MOD-sp2): 45.1 ml EDV(MOD-sp4): 87.6 ml EDV(MOD-sp2): 81.6 ml LAV(MOD-sp4): 44.7 ml EDV(sp4-el): 88.7 ml EDV(sp2-el): 80.3 ml LVAs ap4: 14.8 cm2 LVAs ap2: 15.9 cm2 LVLs ap4: 6.6 cm LVLs ap2: 7.2 cm ESV(MOD-sp4): 28.0 ml ESV(MOD-sp2): 30.7 ml ESV(sp4-el): 28.3 ml ESV(sp2-el): 30.0 ml EF(MOD-sp4): 68.0 % EF(MOD-sp2): 62.4 % EF(sp4-el): 68.1 % SV(MOD-sp4): 59.5 ml SV(MOD-sp2): 50.9 ml SV(sp4-el): 60.4 ml LA dimension(2D): 3.5 cm LA A4 area: 16.2 cm2 RA A4 area: 14.8 cm2 Doppler Measurements & Calculations MV E max andrae: 52.5 cm/sec Lat Peak E' Andrae: 6.3 cm/sec Med Peak E' Andrae: 5.9 cm/sec MV A max andrae: 65.4 cm/sec E/E' lat: 8.4 E/E' med: 8.8 MV E/A: 0.80 Ao V2 max: 133.6 cm/sec LV V1 max: 90.5 cm/sec PA V2 max: 91.3 cm/sec Ao max P.1 mmHg LV V1 max P.3 mmHg TR max andrae: 223.4 cm/sec TR max P.0 mmHg ECHO/Echo Complete Interpretation Summary Left ventricular systolic function is normal. The estimated ejection fraction is 65 %. Trivial mitral valve insufficiency. Mild tricuspid valve insufficiency. Trivial pulmonic valve insufficiency. Right ventricular systolic pressure estimated to be 23 mmHg. No evidence for diastolic dysfunction. Ordering Physician: Steve Oakley Referring Physician: Rei Morgan Performed By: Kori Bernard RDCS
--- NOTE | 2021-03-30 08:08 | STRESSREP_ITS ---
Stress Test Report Date: 03-30-2021 Procedure: Pharmacologic stress nuclear imaging study Indications: CAD; status post non-ST segment elevation [place] Consent: Per the patient Procedure: The patient underwent pharmacologic (Regadenoson 0.4mg ) evaluation with a peak heart rate of 115 beats per minute (71%predicted maximal heart rate) and a peak blood pressure of 140/88 mmHg. The baseline ECG demonstrated sinus bradycardia. The peak pharmacologic ECG demonstrated no obvious ECG changes. There were no cardiac dysrhythmias pretest, during pharmacologic infusion, or recovery. There was no complaint of chest discomfort during pharmacologic infusion or recovery. The examination was discontinued secondary to completion of protocol. Impression: 1. Pharmacologic (Regadenoson) evaluation 2. Peak pharmacologic ECG with no obvious ECG changes. 3. There were no cardiac dysrhythmias pretest, during pharmacologic infusion, or recovery. 4. Nuclear images pending Myocardial perfusion imaging study: Technique: The patient was injected with 11.2 millicuries of technetium 99m Cardiolite and subsequently rest SPECT Cardiolite nuclear imaging was obtained in the horizontal long, vertical long, and short axis views. The patient underwent pharmacologic (Regadenoson) evaluation with a peak heart rate of 150 beats per minute (71% percent predicted maximal heart rate) and a peak blood pressure of 140/88 mmHg. The patient was injected with 32 point millicuries of technetium 99m Cardiolite and subsequently stress SPECT Cardiolite nuclear imaging was obtained in the horizontal long, vertical long, and short axis views. A gated Cardiolite study at peak stress was obtained. Interpretation: Rest and stress SPECT Cardiolite nuclear imaging status post realignment, normalization, and attenuation correction demonstrate relative uniform tracer uptake and myocardial perfusion appearing within normal limits. There is end systolic thickening and brightening. The gated Cardiolite study demonstrates diminished myocardial thickening/inward wall motion of the inferior apical areas. The reported LVEF is 66%. Impression: 1. Rest and stress SPECT Cardiolite nuclear imaging demonstrate relative uniform tracer uptake and myocardial perfusion appearing within normal limits. 2. The gated Cardiolite study reports an LVEF of 66%. This note was generated with [employer] software. It may contain incorrect words, spelling, and punctuation that were not noted in checking the note before signing.
== END ==
PROVIDERS: PCP Student in an Organized Health Care Education/Training Program; Referring Provider Internal Medicine Cardiovascular Disease; Visit Provider Internal Medicine Cardiovascular Disease
DX: I25.2 Old myocardial infarction (principal); I11.0 Hypertensive heart disease with heart failure; I50.21 Acute systolic (congestive) heart failure; I77.810 Thoracic aortic ectasia; E78.00 Pure hypercholesterolemia, unspecified
CPT/HCPCS: 78452; 93017; 93306; A9500; A4216; J2785

== ENCOUNTER → 2021-03-30 06:16 | Outpatient (CLI) | payer MEDICARE, SELFPAY | PROVIDERS: PCP Student in an Organized Health Care Education/Training Program; Visit Provider Internal Medicine Cardiovascular Disease | DX: I25.2 Old myocardial infarction (principal); I11.0 Hypertensive heart disease with heart failure; I77.810 Thoracic aortic ectasia; I50.21 Acute systolic (congestive) heart failure; E78.00 Pure hypercholesterolemia, unspecified ==

== ENCOUNTER 2021-05-11 11:03 | Emergency (ER) | payer MEDICARE, MEDICAID, SELFPAY ==
[2021-05-11 11:04] VITALS: BP 124/78; PULSE 74; RESP 18; TEMP 35.5; O2SAT 100; BMI 20.5
--- NOTE | 2021-05-11 11:28 | US_ITS ---
STUDY: SCROTUM ULTRASOUND REASON FOR EXAM: Male, 60 years old. Left testicular pain. TECHNIQUE: Ultrasound evaluation of the scrotum was performed with color Doppler and static shearer-scale imaging. COMPARISON: None. FINDINGS: RIGHT TESTICLE INTRATESTICULAR: There is a normal size of the right testicle. The right testicle measures 4.4 cm x 2.4 cm x 2.3 cm. There is a homogenous echotexture. There is normal arterial and normal venous vascularity. There is no demonstrated right testicular mass or cyst. EXTRATESTICULAR: The epididymis is normal in size. The epididymis head measures 1.1 cm x 1.2 cm x 0.6 cm. There is normal vascularity of the epididymis. There is no demonstrated epididymal cystic structure. There is no demonstrated hydrocele. There is no demonstrated varicocele. There is no demonstrated extratesticular mass or cyst. LEFT TESTICLE INTRATESTICULAR: There is a normal size of the left testicle. The left testicle measures 4.1 cm x 2.4 cm x 2.1 cm. There is a homogenous echotexture. There is normal arterial and normal venous vascularity. There is no demonstrated left testicular mass or cyst. EXTRATESTICULAR: The epididymis is enlarged. The epididymis head measures 2.2 cm x 2.1 cm x 1.3 cm. There is increased (hyperemic) vascularity of the epididymis. There is a 1.4 cm x 1.4 cm x 0.7 cm epididymal cyst. There is a moderate size hydrocele. There are prominent extratesticular veins consistent with a varicocele. There is no demonstrated extratesticular mass or cyst. US/Testicular with Arterial Flow IMPRESSION: Findings in keeping with a acute left epididymitis. Left hydrocele and left varicocele. Electronically Signed: Griffin Jiang MD at 13:27 EDT , Service support ,
[2021-05-11 12:09] LABS: Absolute Lymphocyte Count 1.34 X10^3/uL (0.83-4.51); Basophil# 0.04 X10^3/uL; Basophil% 0.3 % (0-1); Eosinophil# 0.04 X10^3/uL; Eosinophils% 0.3 % (0-5); Hematocrit 38.3 % (40-54); Hemoglobin 12.7 g/dL (13.0-16.5); Lymphocyte # 1.34 X10^3/ul (0.83-4.51); Lymphocyte % 11.6 % (19-41); Mean Corp Hgb Conc 33.2 g/dL (32-36); Mean Corpuscular Hgb 29.8 pg (27.0-32.0); Mean Corpuscular Volume 89.9 fL (80-94); Mean Platelet Vol. 10.4 fl (6.2-12.0); Monocyte# 1.08 X10^3/uL; Monocyte% 9.3 % (0-10); NRBC Flagged by Analyzer 0 % (0-5); Neutrophil # 9.03 X10^3/uL (2.7-7.7); Neutrophil % 77.9 % (47-70); Platelet Count 233 K/mm3 (150-450); RBC Distribution Width CV 13.8 % (11.6-14.6); RBC Distribution Width SD 45.1 fl (35.1-43.9); Red Blood Count 4.26 M/mm3 (4.6-6.2); White Blood Count 11.6 K/mm3 (4.4-11.0)
[2021-05-11 12:17] LABS: Mucous, Urine 0 SEEN /hpf (<or=2+)
[2021-05-11 12:18] LABS: ALB/GLOB Ratio 0.8 RATIO (0.9-2.4); AST(SGOT) 19 U/L (15-37); Alanine Aminotransfer ALT/SGPT 18 U/L (16-61); Albumin, Serum 3.5 g/dL (3.2-5.0); Alkaline Phosphatase 81 U/L (45-117); Anion Gap 6 (5-15); BUN 9 mg/dL (7-18); BUN/Creat Ratio 9.8 RATIO (10-20); Calcium,Total 9.5 mg/dL (8.5-10.1); Chloride 103 mmol/L (98-107); Creatinine, Serum 0.92 mg/dL (0.70-1.30); EST Glomerular Filtration Rate 90 mL/min (>60); Est Glom Filt Rate - Afr Amer 108 mL/min (>60); Estimated Creatinine Clearance 74.88 ml/min; Globulin 4.2 g/dL (2.2-4.2); Glucose 108 mg/dL (74-106); Potassium 3.7 mmol/L (3.5-5.1); Protein, Total 7.7 g/dL (6.4-8.2); Sodium Level 135 mmol/L (136-145)
[2021-05-11 12:28] LABS: Color, Urine Yellow (Yellow); Glucose, Dipstick Normal (Normal); Ketone-Dipstick 5 mg/dl (Negative); Leukocyte Esterase-Dipstick 500 /ul (Negative); Nitrite-Dipstick Negative (Negative); Occult Blood-Urine 150 /ul (Negative); Protein-Dipstick 30 mg/dl (Negative); Specific Gravity, Urine 1.015 (1.002-1.030); Urine Clarity Sl. Cloudy (Clear); Urine Urobilinogen 4 mg/dl (Normal)
--- NOTE | 2021-05-11 12:29 | EX.ED.GUMALE ---
HPI History of Present Illness Chief Complaint: Male Pain/Injury Narrative Narrative: Patient presents with urgency, frequency and left testicle pain for a few days. No fevers or chills. No penile discharge. He is denying abdominal pain other than his chronic umbilical hernia that is never able to be reduced and hurts when pressed on. No constipation or diarrhea. No pain with bowel movements. No flank pain. [facility] Medical History Acute systolic (congestive) heart failure MONISHA (acute kidney injury) Aortic root dilatation Cleft palate COPD (chronic obstructive pulmonary disease) DDD (degenerative disc disease) Essential hypertension History of non-ST elevation myocardial infarction (NSTEMI) Hypertension Lung nodule Prostate cancer Pure hypercholesterolemia Home Medications bupropion HCl 150 mg PO BID 10/24/20 [History Last Taken Unknown] hydrochlorothiazide 25 mg PO DAILY 10/24/20 [History Last Taken Unknown] amlodipine 5 mg PO DAILY 02/15/21 [History Last Taken Unknown] aspirin 81 mg PO DAILY 02/15/21 [History Last Taken Unknown] oxybutynin chloride 10 mg PO DAILY 02/15/21 [History Last Taken Unknown] tiotropium bromide [Spiriva Respimat] 1 puff INHALATION DAILY 02/15/21 [History Last Taken Unknown] albuterol sulfate 90 mcg/actuation aerosol inhaler 2 puff INHALATION Q6H PRN 03/06/21 [History Last Taken Unknown] atorvastatin 80 mg tablet 80 mg PO QHS 03/06/21 [History Last Taken Unknown] fexofenadine 180 mg tablet 180 mg PO DAILY 03/06/21 [History Last Taken Unknown] fluticasone furoate 200 mcg-vilanterol 25 mcg/dose inhalation powder 1 inh INHALATION DAILY 03/06/21 [History Last Taken Unknown] gabapentin 100 mg capsule 200 mg PO DAILY cap 03/06/21 [History Last Taken Unknown] guaifenesin 600 mg tablet, extended release 12 hr 600 mg PO BID 03/06/21 [History Last Taken Unknown] hydralazine 10 mg tablet 10 mg PO TID 03/06/21 [History Last Taken Unknown] magnesium oxide 400 mg (241.3 mg magnesium) tablet 400 mg PO DAILY 03/06/21 [History Last Taken Unknown] metoprolol tartrate 25 mg tablet 25 mg PO BID 03/06/21 [History Last Taken Unknown] omeprazole 40 mg capsule,delayed release 40 mg PO BID 03/06/21 [History Last Taken Unknown] sodium bicarbonate 650 mg tablet 650 mg PO BID 03/06/21 [History Last Taken Unknown] tamsulosin 0.4 mg capsule 0.4 mg PO QHS 03/06/21 [History Last Taken Unknown] levofloxacin 500 mg PO DAILY #10 tab 05/11/21 [Rx Last Taken Unknown] Allergy/AdvReac Type Severity Reaction Status Date / Time bee venom protein (honey bee) Allergy Anaphylaxis Verified 05/11/21 11:05 Family History Mother Thyroid disorder Cancer Ovarian Father Cancer Prostate Grandmother CVA (cerebral vascular accident) Surgical History History of ankle surgery History of hernia repair History of tonsillectomy History of transurethral resection of prostate (~12/15/20) Social History Smoking Status: Former smoker alcohol intake: current details: 12 Cans of Beer per week substance use type: marijuana ROS ROS ED ROS Narrative Past medical history: Reviewed, significant for hypercholesterolemia, hypertension, COPD and coronary artery disease Medications: Reviewed Social history: Noncontributory Review of systems: All systems negative except as indicated General: No fever Eyes: No visual changes ENT: No upper airway congestion, normal voice Neck: No neck pain Cardiovascular: No chest pain Respiratory: No shortness of breath or cough Gastrointestinal: No new abdominal pain other than the umbilical hernia pain which is chronic. No nausea or vomiting. No diarrhea or constipation. No pain with bowel movement. Genitourinary: As in HPI Musculoskeletal: Denies myalgias no difficulty with ambulation Skin: No rash Neurological: No memory loss, confusion or any focal weakness Psych: No recent behavioral changes Hematologic: No easy bleeding or easy bruising EXAM Physical Exam Narrative Exam Narrative: Physical exam General: Patient appears slightly uncomfortable. Head: Normocephalic, Atraumatic Eyes: Conjunctiva not pale ENT: Moist mucous membranes Neck: Supple, Nontender, No lymphadenopathy Cardiovascular: Regular rate, Regular rhythm Respiratory: No distress, CTA bilaterally Abdomen: Soft, there is an umbilical hernia it is quite small. I cannot reduce it however he tells me this is always the case. He has no other abdominal pain. : Penis exam is normal no obvious discharge. He has a swollen left testicle it is quite painful and red. I cannot appreciate cremasteric reflex bilaterally. Back: Nontender, Normal Inspection. Negative for: CVA tenderness Extremities: Nontender, No edema Skin: Normal color, No rash Neurological: Alert, Normal Strength, Normal Sensation Psychological: Normal affect Const Vital Signs: 05/11/21 11:04 Temperature 96 F L Temperature Source Temporal Pulse Rate 74 Respiratory Rate 18 Blood Pressure 124/78 H Blood Pressure Mean 93 Pulse Ox 100 Oxygen Delivery Method Room Air MDM MDM MDM Narrative Medical decision making narrative: Patient is found to have epididymitis. He denies any recent sexual contacts including anal sex. He had recent instrumentation in December in [place] and has an appointment with urology next week. I will treat him with Levaquin and he received Rocephin in the ED. Otherwise he appears well and he will be discharged in stable condition. There is no evidence of urinary retention today. Lab Data Labs: Laboratory Results - last 24 hr 05/11/21 05/11/21 05/11/21 11:45 11:45 12:07 WBC 11.6 H RBC 4.26 L Hgb 12.7 L Hct 38.3 L MCV 89.9 MCH 29.8 MCHC 33.2 RDW Std Deviation 45.1 H RDW Coeff of Cr 13.8 Plt Count 233 MPV 10.4 Immature Gran % (Auto) 0.600 Neut % (Auto) 77.9 H Lymph % (Auto) 11.6 L [place] % (Auto) 9.3 Eos % (Auto) 0.3 Baso % (Auto) 0.3 Absolute Neuts (auto) 9.0 H Absolute Lymphs (auto) 1.34 Nucleated RBC % 0 Sodium 135 L Potassium 3.7 Chloride 103 Carbon Dioxide 26.0 Anion Gap 6 BUN 9 Creatinine 0.92 Estim Creat Clear Calc 74.88 Est GFR (MDRD) Af Amer 108 Est GFR (MDRD) Non-Af 90 BUN/Creatinine Ratio 9.8 L Glucose 108 H Calcium 9.5 Total Bilirubin 0.90 AST 19 ALT 18 Alkaline Phosphatase 81 Total Protein 7.7 Albumin 3.5 Globulin 4.2 Albumin/Globulin Ratio 0.8 L Urine Color Yellow Urine Clarity Sl. Cloudy Urine pH 6.0 Ur Specific [place] 1.015 Urine Protein 30 H Urine Glucose (UA) Normal Urine Ketones 5 H Urine Occult Blood 150 H Urine Nitrite Negative Urine Bilirubin 1 H Urine Urobilinogen 4 H Ur Leukocyte Esterase 500 H Urine RBC 10-25 SEEN Urine WBC 25-50 SEEN Ur Squamous Epith Cells 0-5 SEEN Urine Bacteria 2+ Urine Mucus 0 SEEN Radiography Diagnostic Testing: Clinical Impression(s) from Imaging Studies Testicular Ultrasound 05/11/21 11:28 IMPRESSION: Findings in keeping with a acute left epididymitis. Left hydrocele and left varicocele. Electronically Signed: Griffin Jiang MD at 13:27 EDT , Service support , Discharge Plan Triage Chief Complaint: Male Pain/Injury ED Provider: Steve Cheema Dx/Rx/DC Orders Clinical Impression: Acute epididymitis Instructions: ED Epididymitis Prescriptions: New levofloxacin 500 mg tablet 500 mg PO DAILY Qty: 10 RF: 0 No Action gabapentin 100 mg capsule 200 mg PO DAILY RF: 0 hydralazine 10 mg tablet 10 mg PO TID RF: 0 metoprolol tartrate 25 mg tablet 25 mg PO BID RF: 0 omeprazole 40 mg capsule,delayed release(DR/EC) 40 mg PO BID RF: 0 atorvastatin 80 mg tablet 80 mg PO QHS RF: 0 magnesium oxide 400 mg (241.3 mg magnesium) tablet 400 mg PO DAILY RF: 0 sodium bicarbonate 650 mg tablet 650 mg PO BID RF: 0 Breo Ellipta 200-25 mcg/dose blister with device 1 inh inhalation DAILY RF: 0 tamsulosin 0.4 mg capsule 0.4 mg PO QHS RF: 0 albuterol sulfate [ProAir HFA] 90 mcg/actuation HFA aerosol inhaler 2 puff inhalation Q6H PRNRF: 0 guaifenesin [Mucinex] 600 mg tablet extended release 12hr 600 mg PO BID RF: 0 fexofenadine [[place] Allergy] 180 mg tablet 180 mg PO DAILY RF: 0 hydrochlorothiazide 25 MG tablet 25 mg PO DAILY RF: 0 bupropion HCl 150 MG tablet sustained-release 12 hr 150 mg PO BID RF: 0 oxybutynin chloride 10 mg tablet extended release 24hr 10 mg PO DAILY RF: 0 amlodipine 5 mg tablet 5 mg PO DAILY RF: 0 aspirin 81 mg tablet,delayed release (DR/EC) 81 mg PO DAILY RF: 0 Spiriva Respimat 2.5 mcg/actuation mist 1 puff INHALATION DAILY RF: 0 Primary Care Provider: Rei Morgan Referrals: Rei Morgan DO [Primary Care Provider] - Boni Wray MD [NON-STAFF] - Disposition Disposition: Home, Self Care
[2021-05-11 12:30] LABS: Urine Bilirubin Dipstick 1 mg/dL (Negative)
[2021-05-11 12:39] LABS: Bacteria 2+ /hpf (None Seen); Red Blood Cells-Urine 10-25 SEEN /hpf (0-5); Squamous Epithelial Cells - UA 0-5 SEEN /hpf (0-5); White Blood Cells 25-50 SEEN /hpf (0-5)
--- NOTE | 2021-05-11 14:35 | EDS_ITS ---
HPI History of Present Illness Chief Complaint: Male Pain/Injury [facility] Medical History Acute systolic (congestive) heart failure MONISHA (acute kidney injury) Aortic root dilatation Cleft palate COPD (chronic obstructive pulmonary disease) DDD (degenerative disc disease) Essential hypertension History of non-ST elevation myocardial infarction (NSTEMI) Hypertension Lung nodule Prostate cancer Pure hypercholesterolemia Home Medications bupropion HCl 150 mg PO BID 10/24/20 [History Last Taken Unknown] hydrochlorothiazide 25 mg PO DAILY 10/24/20 [History Last Taken Unknown] amlodipine 5 mg PO DAILY 02/15/21 [History Last Taken Unknown] aspirin 81 mg PO DAILY 02/15/21 [History Last Taken Unknown] oxybutynin chloride 10 mg PO DAILY 02/15/21 [History Last Taken Unknown] tiotropium bromide [Spiriva Respimat] 1 puff INHALATION DAILY 02/15/21 [History Last Taken Unknown] albuterol sulfate 90 mcg/actuation aerosol inhaler 2 puff INHALATION Q6H PRN 03/06/21 [History Last Taken Unknown] atorvastatin 80 mg tablet 80 mg PO QHS 03/06/21 [History Last Taken Unknown] fexofenadine 180 mg tablet 180 mg PO DAILY 03/06/21 [History Last Taken Unknown] fluticasone furoate 200 mcg-vilanterol 25 mcg/dose inhalation powder 1 inh INHALATION DAILY 03/06/21 [History Last Taken Unknown] gabapentin 100 mg capsule 200 mg PO DAILY cap 03/06/21 [History Last Taken Unknown] guaifenesin 600 mg tablet, extended release 12 hr 600 mg PO BID 03/06/21 [History Last Taken Unknown] hydralazine 10 mg tablet 10 mg PO TID 03/06/21 [History Last Taken Unknown] magnesium oxide 400 mg (241.3 mg magnesium) tablet 400 mg PO DAILY 03/06/21 [History Last Taken Unknown] metoprolol tartrate 25 mg tablet 25 mg PO BID 03/06/21 [History Last Taken Unknown] omeprazole 40 mg capsule,delayed release 40 mg PO BID 03/06/21 [History Last Taken Unknown] sodium bicarbonate 650 mg tablet 650 mg PO BID 03/06/21 [History Last Taken Unknown] tamsulosin 0.4 mg capsule 0.4 mg PO QHS 03/06/21 [History Last Taken Unknown] levofloxacin 500 mg PO DAILY #10 tab 05/11/21 [Rx Last Taken Unknown] Allergy/AdvReac Type Severity Reaction Status Date / Time bee venom protein (honey bee) Allergy Anaphylaxis Verified 05/11/21 11:05 Family History Mother Thyroid disorder Cancer Ovarian Father Cancer Prostate Grandmother CVA (cerebral vascular accident) Surgical History History of ankle surgery History of hernia repair History of tonsillectomy History of transurethral resection of prostate (~12/15/20) Social History Smoking Status: Former smoker alcohol intake: current details: 12 Cans of Beer per week substance use type: marijuana EXAM Physical Exam Const Vital Signs: 05/11/21 11:04 Temperature 96 F L Temperature Source Temporal Pulse Rate 74 Respiratory Rate 18 Blood Pressure 124/78 H Blood Pressure Mean 93 Pulse Ox 100 Oxygen Delivery Method Room Air [facility] Lab Data Labs: Laboratory Results - last 24 hr 05/11/21 05/11/21 05/11/21 11:45 11:45 12:07 WBC 11.6 H RBC 4.26 L Hgb 12.7 L Hct 38.3 L MCV 89.9 MCH 29.8 MCHC 33.2 RDW Std Deviation 45.1 H RDW Coeff of Cr 13.8 Plt Count 233 MPV 10.4 Immature Gran % (Auto) 0.600 Neut % (Auto) 77.9 H Lymph % (Auto) 11.6 L Bacon % (Auto) 9.3 Eos % (Auto) 0.3 Baso % (Auto) 0.3 Absolute Neuts (auto) 9.0 H Absolute Lymphs (auto) 1.34 Nucleated RBC % 0 Sodium 135 L Potassium 3.7 Chloride 103 Carbon Dioxide 26.0 Anion Gap 6 BUN 9 Creatinine 0.92 Estim Creat Clear Calc 74.88 Est GFR (MDRD) Af Amer 108 Est GFR (MDRD) Non-Af 90 BUN/Creatinine Ratio 9.8 L Glucose 108 H Calcium 9.5 Total Bilirubin 0.90 AST 19 ALT 18 Alkaline Phosphatase 81 Total Protein 7.7 Albumin 3.5 Globulin 4.2 Albumin/Globulin Ratio 0.8 L Urine Color Yellow Urine Clarity Sl. Cloudy Urine pH 6.0 Ur Specific [place] 1.015 Urine Protein 30 H Urine Glucose (UA) Normal Urine Ketones 5 H Urine Occult Blood 150 H Urine Nitrite Negative Urine Bilirubin 1 H Urine Urobilinogen 4 H Ur Leukocyte Esterase 500 H Urine RBC 10-25 SEEN Urine WBC 25-50 SEEN Ur Squamous Epith Cells 0-5 SEEN Urine Bacteria 2+ Urine Mucus 0 SEEN Radiography Diagnostic Testing: Clinical Impression(s) from Imaging Studies Testicular Ultrasound 05/11/21 11:28 IMPRESSION: Findings in keeping with a acute left epididymitis. Left hydrocele and left varicocele. Electronically Signed: Griffin Jiang MD at 13:27 EDT , Service support , Discharge Plan Triage Chief Complaint: Male Pain/Injury ED Provider: Steve Cheema Dx/Rx/DC Orders Clinical Impression: Acute epididymitis Instructions: ED Epididymitis Prescriptions: New levofloxacin 500 mg tablet 500 mg PO DAILY Qty: 10 RF: 0 No Action gabapentin 100 mg capsule 200 mg PO DAILY RF: 0 hydralazine 10 mg tablet 10 mg PO TID RF: 0 metoprolol tartrate 25 mg tablet 25 mg PO BID RF: 0 omeprazole 40 mg capsule,delayed release(DR/EC) 40 mg PO BID RF: 0 atorvastatin 80 mg tablet 80 mg PO QHS RF: 0 magnesium oxide 400 mg (241.3 mg magnesium) tablet 400 mg PO DAILY RF: 0 sodium bicarbonate 650 mg tablet 650 mg PO BID RF: 0 Breo Ellipta 200-25 mcg/dose blister with device 1 inh inhalation DAILY RF: 0 tamsulosin 0.4 mg capsule 0.4 mg PO QHS RF: 0 albuterol sulfate [ProAir HFA] 90 mcg/actuation HFA aerosol inhaler 2 puff inhalation Q6H PRNRF: 0 guaifenesin [Mucinex] 600 mg tablet extended release 12hr 600 mg PO BID RF: 0 fexofenadine [[place] Allergy] 180 mg tablet 180 mg PO DAILY RF: 0 hydrochlorothiazide 25 MG tablet 25 mg PO DAILY RF: 0 bupropion HCl 150 MG tablet sustained-release 12 hr 150 mg PO BID RF: 0 oxybutynin chloride 10 mg tablet extended release 24hr 10 mg PO DAILY RF: 0 amlodipine 5 mg tablet 5 mg PO DAILY RF: 0 aspirin 81 mg tablet,delayed release (DR/EC) 81 mg PO DAILY RF: 0 Spiriva Respimat 2.5 mcg/actuation mist 1 puff INHALATION DAILY RF: 0 Primary Care Provider: Rei Morgan Referrals: Rei Morgan DO [Primary Care Provider] - Boni Wray MD [NON-STAFF] - Disposition Disposition: Home, Self Care
[2021-05-11] MEDS: levoFLOXacin IV 500 MG/100 ML BAG 100 MG IV (14:48)
[2021-05-11 14:49] VITALS: BP 121/84; PULSE 78; RESP 16; O2SAT 98
[2021-05-11 15:42] VITALS: BP 125/82; PULSE 77; RESP 15; O2SAT 97
[2021-05-11] MEDS: Ceftriaxone 1 GM/50 ML BAG IV (16:07)
[2021-05-11 16:08] VITALS: BP 133/85; PULSE 77; RESP 16; O2SAT 99
[2021-05-11 17:00] VITALS: BP 121/82; PULSE 70; RESP 15; O2SAT 98
== END 2021-05-11 17:01 | disposition home or self-care (01) ==
PROVIDERS: Emergency Provider Emergency Medicine; PCP Student in an Organized Health Care Education/Training Program
DX: N45.1 Epididymitis (principal); F12.10 Cannabis abuse, uncomplicated; I25.2 Old myocardial infarction; I25.10 Atherosclerotic heart disease of native coronary artery without angina pectoris; Z87.891 Personal history of nicotine dependence
CPT/HCPCS: 76870; 80053; 81001; 85025; 93976; 96365; 96367; 99284; J7030; P9612; A4216

== ENCOUNTER 2021-06-20 11:45 | Emergency (ER) | payer MEDICARE, MEDICAID, SELFPAY ==
[2021-06-20 11:45] VITALS: BP 146/89; PULSE 58; RESP 16; TEMP 36.7; O2SAT 98; BMI 20.2
--- NOTE | 2021-06-20 11:55 | EDS_ITS ---
HPI History of Present Illness Chief Complaint: Complaint Detail of Chief Complaint: Difficulty urinating that started last evening Informant: patient Narrative Narrative: Patient presents to the emergency department complaint of urinary difficulty that started last evening. Patient states that he has a sensation that he needs to urinate but only able to get small amounts of urine out. Patient complains of some faint burning. He denies any fevers or chills or sweats. Patient states that he had a TURP prostate surgery in December and has not had any issues urinating since that time. Patient denies any abdominal pain or back pain. Patient denies hematuria. [facility] Medical History Acute systolic (congestive) heart failure MONISHA (acute kidney injury) Aortic root dilatation Cleft palate COPD (chronic obstructive pulmonary disease) DDD (degenerative disc disease) Essential hypertension History of non-ST elevation myocardial infarction (NSTEMI) Hypertension Lung nodule Prostate cancer Pure hypercholesterolemia Home Medications bupropion HCl 150 mg PO BID 10/24/20 [History Last Taken Unknown] hydrochlorothiazide 25 mg PO DAILY 10/24/20 [History Last Taken Unknown] amlodipine 5 mg PO DAILY 02/15/21 [History Last Taken Unknown] aspirin 81 mg PO DAILY 02/15/21 [History Last Taken Unknown] oxybutynin chloride 10 mg PO DAILY 02/15/21 [History Last Taken Unknown] tiotropium bromide [Spiriva Respimat] 1 puff INHALATION DAILY 02/15/21 [History Last Taken Unknown] albuterol sulfate 90 mcg/actuation aerosol inhaler 2 puff INHALATION Q6H PRN 03/06/21 [History Last Taken Unknown] fexofenadine 180 mg tablet 180 mg PO DAILY 03/06/21 [History Last Taken Unknown] fluticasone furoate 200 mcg-vilanterol 25 mcg/dose inhalation powder 1 inh INHALATION DAILY 03/06/21 [History Last Taken Unknown] gabapentin 100 mg capsule 200 mg PO DAILY cap 03/06/21 [History Last Taken Unknown] guaifenesin 600 mg tablet, extended release 12 hr 600 mg PO BID 03/06/21 [History Last Taken Unknown] hydralazine 10 mg tablet 10 mg PO TID 03/06/21 [History Last Taken Unknown] magnesium oxide 400 mg (241.3 mg magnesium) tablet 400 mg PO DAILY 03/06/21 [History Last Taken Unknown] metoprolol tartrate 25 mg tablet 25 mg PO BID 03/06/21 [History Last Taken Unknown] omeprazole 40 mg capsule,delayed release 40 mg PO BID 03/06/21 [History Last Taken Unknown] sodium bicarbonate 650 mg tablet 650 mg PO BID 03/06/21 [History Last Taken Unknown] tamsulosin 0.4 mg capsule 0.4 mg PO QHS 03/06/21 [History Last Taken Unknown] atorvastatin 80 mg tablet 80 mg PO QHS #90 tab 06/19/21 [Rx Last Taken Unknown] levothyroxine 50 mcg tablet 50 mcg PO DAILY tab 06/19/21 [History Last Taken U nknown] phenazopyridine [Pyridium] 200 mg PO TID #6 tab 06/20/21 [Rx Last Taken Unknown] sulfamethoxazole-trimethoprim 1 tab PO BID #14 tablet 06/20/21 [Rx Last Taken Unknown] Allergy/AdvReac Type Severity Reaction Status Date / Time bee venom protein (honey bee) Allergy Anaphylaxis Verified 06/20/21 11:45 Family History Mother Thyroid disorder Cancer Ovarian Father Cancer Prostate Grandmother CVA (cerebral vascular accident) Surgical History History of ankle surgery History of hernia repair History of tonsillectomy History of transurethral resection of prostate (~12/15/20) Social History Smoking Status: Former smoker alcohol intake: current details: 12 Cans of Beer per week substance use type: marijuana ROS ROS ED Constitutional Constitutional ED: Reports systems reviewed and no addt'l complaints, except as documented; Denies body ache(s), change in weight or chills Eyes Eyes: Denies acute decrease in peripheral vision, change in vision, double vision or loss of vision ENT ENT ED: Reports none; Denies ear pain, lip swelling, loss taste/smell, neck pain, otalgia or sore throat Cardiovascular Cardiovascular: Reports none; Denies abdominal pain, chest pain with activity, leg edema, lightheadedness, palpitations, rapid heart rate or syncope Respiratory/Chest Respiratory/Chest: Reports none; Denies change in mental status, dry cough, dyspnea, hemoptysis, shortness of breath at rest or shortness of breath with exertion Gastrointestinal Gastrointestinal: Reports none; Denies abdominal pain, change in stool character, diarrhea, hematemesis, hematochezia, melena, rectal bleeding or vomiting Genitourinary Genitourinary ED: Reports none, dysuria and urinary frequency; Denies abdominal discomfort, anuria, genital pain or polyuria Musculoskeletal Musculoskeletal: Reports none; Denies arthralgias, back pain, difficulty walking, extremity pain, muscle weakness or myalgias Integumentary Reports none; Denies abscess or rash Neurologic Neurologic: Reports none; Denies abnormal gait, confusion, focal weakness, frequent falls, headache(s), loss of vision, numbness, paresthesias, radicular pain, vertigo or weakness Psychiatric Psychiatric: Reports systems reviewed and no addt'l complaints, except as documented and none; Denies behavioral changes, confusion, difficulty concentrating, hallucinations, suicidal ideation, tactile hallucinations or visual hallucinations Endocrine Endocrinology: Denies none, cold intolerance, excessive sweating, fatigue or heat intolerance Hematologic/Lymphatic Hematologic/Lymphatic: Reports none; Denies anemia, easy bleeding or easy bruising Allergic/Immunologic Allergic/Immunologic ED: Denies as per HPI, none, lip swelling, mouth swelling, throat swelling, tongue swelling or hives EXAM Physical Exam Const Vital Signs: 06/20/21 11:45 Temperature 98.0 F Temperature Source Temporal Pulse Rate 58 L Respiratory Rate 16 Blood Pressure 146/89 H Blood Pressure Mean 108 Pulse Ox 98 Oxygen Delivery Method Room Air Positive well nourished and well developed General Appearance ED: well developed and NAD HEENT Reports TM's clear and moist mucous membranes normocephalic and atraumatic; Negative for trauma or tenderness Tympanic Membrane ED: Yes TM's clear Eyes PERRL and EOMs intact bilaterally General Eye ED: Negative for pale conjunctiva or scleral icterus Neck no lymphadenopathy, supple and no JVD General: Negative for tenderness Chest Wall inspection of chest normal and palpation of chest normal Chest: Negative for tenderness Resp normal respiratory effort and clear to auscultation bilaterally Effort and Inspection: Negative for respiratory distress or pain with movement Auscultation: Negative for rhonchi, wheezes or diminished lung sounds Cardio regular rate, regular rhythm, S1 normal heart sound, S2 normal heart sound and no murmurs Peripheral Pulses: pulses 2+ throughout GI normal to inspection, nondistended, normoactive bowel sounds, soft to palpation, non-tender, non-distended and no masses Back/Spine no CVA tenderness and no thoracic nor lumbar tenderness Extremity normal to inspection General Extremety ED: Negative for edema General Extremity: Negative for edema Neuro oriented x3, CN's II-XII intact bilaterally, no sensory deficits noted and gait normal Sensorium / Orientation: awake, alert, oriented to person, oriented to place and oriented to time Motor Exam: strength 5/5 throughout and strength abnormal Psych mental status grossly normal Skin no rashes or lesions noted and no wounds MDM MDM MDM Narrative Medical decision making narrative: Patient had a bladder scan only showed about 150 cc of urine. Urinalysis obtained showed 500 cassette esterase as well as 10 0 WBCs and +3 bacteria. Urine culture was sent. Patient started on Bactrim and Azo. Patient will be given a prescription for Bactrim and Pyridium. Patient advised to return if worsening abdominal pain, fever, vomiting, or condition should worsen anyway. Lab Data Attestation: I reviewed the patient's lab results. Labs: Laboratory Results - last 24 hr 06/20/21 12:10 Urine Color Yellow Urine Clarity Cloudy Urine pH 7.0 Ur Specific [place] 1.010 Urine Protein 30 H Urine Glucose (UA) Normal Urine Ketones Negative Urine Occult Blood 25 H Urine Nitrite Negative Urine Bilirubin Negative Urine Urobilinogen Normal Ur Leukocyte Esterase 500 H Urine RBC 0 SEEN Urine WBC >100 SEEN Ur Squamous Epith Cells 0-5 SEEN Urine Bacteria 3+ Urine Mucus 0 SEEN Discharge Plan Triage Chief Complaint: Complaint ED Provider: Mesfin Rajput Dx/Rx/DC Orders Clinical Impression: Urinary tract infection Instructions: ED Urinary Tract Infections in Men Prescriptions: New sulfamethoxazole-trimethoprim [sulfamethoxazole-trimethoprim] 1 TABLET tablet 1 tab PO BID Qty: 14 RF: 0 phenazopyridine [Pyridium] 200 mg tablet 200 mg PO TID Qty: 6 RF: 0 No Action gabapentin 100 mg capsule 200 mg PO DAILY RF: 0 hydralazine 10 mg tablet 10 mg PO TID RF: 0 metoprolol tartrate 25 mg tablet 25 mg PO BID RF: 0 omeprazole 40 mg capsule,delayed release(DR/EC) 40 mg PO BID RF: 0 magnesium oxide 400 mg (241.3 mg magnesium) tablet 400 mg PO DAILY RF: 0 sodium bicarbonate 650 mg tablet 650 mg PO BID RF: 0 Breo Ellipta 200-25 mcg/dose blister with device 1 inh inhalation DAILY RF: 0 tamsulosin 0.4 mg capsule 0.4 mg PO QHS RF: 0 albuterol sulfate [ProAir HFA] 90 mcg/actuation HFA aerosol inhaler 2 puff inhalation Q6H PRNRF: 0 guaifenesin [Mucinex] 600 mg tablet extended release 12hr 600 mg PO BID RF: 0 fexofenadine [[place] Allergy] 180 mg tablet 180 mg PO DAILY RF: 0 levothyroxine 50 mcg tablet 50 mcg PO DAILY RF: 0 atorvastatin 80 mg tablet 80 mg PO QHS Qty: 90 RF: 3 hydrochlorothiazide 25 MG tablet 25 mg PO DAILY RF: 0 bupropion HCl 150 MG tablet sustained-release 12 hr 150 mg PO BID RF: 0 oxybutynin chloride 10 mg tablet extended release 24hr 10 mg PO DAILY RF: 0 amlodipine 5 mg tablet 5 mg PO DAILY RF: 0 aspirin 81 mg tablet,delayed release (DR/EC) 81 mg PO DAILY RF: 0 Spiriva Respimat 2.5 mcg/actuation mist 1 puff INHALATION DAILY RF: 0 Primary Care Provider: Rei Morgan Referrals: Rei Morgan DO [Primary Care Provider] - 3-5 Days Disposition Disposition: Home, Self Care
[2021-06-20 12:18] LABS: Mucous, Urine 0 SEEN /hpf (<or=2+); Red Blood Cells-Urine 0 SEEN /hpf (0-5)
[2021-06-20 12:20] LABS: Color, Urine Yellow (Yellow); Glucose, Dipstick Normal (Normal); Ketone-Dipstick Negative (Negative); Leukocyte Esterase-Dipstick 500 /ul (Negative); Nitrite-Dipstick Negative (Negative); Occult Blood-Urine 25 /ul (Negative); Protein-Dipstick 30 mg/dl (Negative); Urine Bilirubin Dipstick Negative (Negative); Urine Clarity Cloudy (Clear); Urine Urobilinogen Normal (Normal)
[2021-06-20 12:27] LABS: White Blood Cells >100 SEEN /hpf (0-5)
[2021-06-20 12:28] LABS: Bacteria 3+ /hpf (None Seen); Squamous Epithelial Cells - UA 0-5 SEEN /hpf (0-5)
[2021-06-20] MEDS: Smz/Tmp Ds Tablet 1 TABLET PO (12:42)
[2021-06-20] MEDS: Phenazopyridine 95 MG Tablet 190 MG PO (12:42)
[2021-06-20 12:56] VITALS: RESP 16
--- NOTE | 2021-06-20 12:56 | ED.RN ---
REVIEWED D/C INSTRUCTIONS, FOLLOW UP CARE, PRESCRIPTIONS, AND S/S THAT WOULD WARRANT A RETURN TO THE ED WITH PT. PT VERBALIZED AN UNDERSTANDING AND DENIES FURTHER QUESTIONS FOR THIS RN. PT SKIN P/W/D, RESP EVEN AND UNLABORED, PT A&O X 3, NO DISTRESS NOTED. PT AMBULATED OUT OF ED, GAIT STEADY.
== END 2021-06-20 12:58 | disposition home or self-care (01) ==
PROVIDERS: Emergency Provider Emergency Medicine; PCP Student in an Organized Health Care Education/Training Program
DX: N39.0 Urinary tract infection, site not specified (principal); F12.10 Cannabis abuse, uncomplicated; I25.2 Old myocardial infarction; Z87.891 Personal history of nicotine dependence
CPT/HCPCS: 81001; 87077; 87086; 87088; 87186; 99283

== ENCOUNTER 2021-08-03 15:16 | Outpatient (CLI) | payer MEDICARE, MEDICAID, SELFPAY | END 2021-08-03 23:59 | disposition short-term general hospital (02) | LOC: LABSPEC 15:18 | PROVIDERS: PCP Student in an Organized Health Care Education/Training Program; Visit Provider Otolaryngology | DX: Z03.818 Encounter for observation for suspected exposure to other biological agents ruled out (principal) | CPT/HCPCS: 87635; U0003; U0005 ==

== ENCOUNTER 2021-08-16 10:23 | Outpatient (CLI) | payer MEDICARE, MEDICAID, SELFPAY ==
--- NOTE | 2021-08-16 10:27 | EKG12_ITS ---
Test Reason : PRE-OP Blood Pressure : / mmHG Vent. Rate : 060 BPM Atrial Rate : 060 BPM P-R Int : 146 ms QRS Dur : 094 ms QT Int : 430 ms P-R-T Axes : 064 029 042 degrees QTc Int : 430 ms Normal sinus rhythm Normal ECG Confirmed by THERESE CALDWELL, ANGEL ([id number]), features editor CARLOS BLACKWOOD ([id number]) on 08/17/2021 10:44:52 AM Referred By: Campos Smith Confirmed By:ANGEL SALEH MD
[2021-08-16 12:25] LABS: Hematocrit 37.7 % (40-54); Hemoglobin 12.5 g/dL (13.0-16.5); Mean Corp Hgb Conc 33.2 g/dL (32-36); Mean Corpuscular Hgb 30.6 pg (27.0-32.0); Mean Corpuscular Volume 92.2 fL (80-94); Mean Platelet Vol. 10.7 fl (6.2-12.0); Platelet Count 252 K/mm3 (150-450); RBC Distribution Width CV 15.1 % (11.6-14.6); RBC Distribution Width SD 51.6 fl (35.1-43.9); Red Blood Count 4.09 M/mm3 (4.6-6.2); White Blood Count 6.7 K/mm3 (4.4-11.0)
[2021-08-16 12:51] LABS: Anion Gap 3 (5-15); BUN 14 mg/dL (7-18); BUN/Creat Ratio 13.7 RATIO (10-20); Calcium,Total 8.6 mg/dL (8.5-10.1); Chloride 106 mmol/L (98-107); Creatinine, Serum 1.02 mg/dL (0.70-1.30); EST Glomerular Filtration Rate 79 mL/min (>60); Est Glom Filt Rate - Afr Amer 96 mL/min (>60); Glucose 84 mg/dL (74-106); Sodium Level 140 mmol/L (136-145)
== END 2021-08-16 23:59 | disposition home or self-care (01) ==
PROVIDERS: PCP Student in an Organized Health Care Education/Training Program; Referring Provider Otolaryngology; Visit Provider Otolaryngology
DX: Z01.818 Encounter for other preprocedural examination (principal)
CPT/HCPCS: 36415; 80048; 85027; 93005

== ENCOUNTER 2021-08-29 14:57 | Outpatient (CLI) | payer MEDICARE, MEDICAID, SELFPAY | END 2021-08-29 23:59 | disposition home or self-care (01) | LOC: LABSPEC 14:59 | PROVIDERS: PCP Student in an Organized Health Care Education/Training Program; Visit Provider Otolaryngology | DX: Z03.818 Encounter for observation for suspected exposure to other biological agents ruled out (principal) | CPT/HCPCS: 87635; U0003; U0005 ==

== ENCOUNTER 2022-12-21 19:43 | Emergency (ER) | payer MEDICARE, MEDICAID, SELFPAY ==
[2022-12-21 19:43] VITALS: BP 139/96; PULSE 90; RESP 15; TEMP 36.6; O2SAT 98; BMI 20.8
--- NOTE | 2022-12-21 20:12 | EX.ED.DYSGE1 ---
HPI <ALBERT Padilla - Last Filed: 12/21/22 20:34> History of Present Illness Chief Complaint: Abd Pain Narrative Narrative: Patient presenting today with a right inguinal hernia that he has had for several years but has been causing him more pain intermittently over the past several months. He reports that it does not bother him at rest but whenever he tries to climb stairs or lift something it irritates him. For the past few days he has been moving and lifting heavy boxes and it seems to be bothering him more than usual. He is still having normal bowel movements, he denies any nausea, vomiting, and urinary symptoms. PMH includes hypertension, COPD, CAD, and hyperlipidemia. PFSH <ALBERT Padilla - Last Filed: 12/21/22 20:34> PFSH Medical History Acute systolic (congestive) heart failure MONISHA (acute kidney injury) Aortic root dilatation Cleft palate COPD (chronic obstructive pulmonary disease) DDD (degenerative disc disease) Essential hypertension History of non-ST elevation myocardial infarction (NSTEMI) Hypertension Lung nodule Prostate cancer Pure hypercholesterolemia Home Medications bupropion HCl 150 mg tablet,12 hr sustained-release 150 mg PO BID 10/24/20 [History Last Taken Unknown] hydrochlorothiazide 25 mg tablet 25 mg PO DAILY 10/24/20 [History Last Taken Unknown] amlodipine 5 mg tablet 5 mg PO DAILY 02/15/21 [History Last Taken Unknown] aspirin 81 mg tablet,delayed release 81 mg PO DAILY 02/15/21 [History Last Taken Unknown] oxybutynin chloride 10 mg tablet,extended release 24 hr 10 mg PO DAILY 02/15/21 [History Last Taken Unknown] tiotropium bromide 2.5 mcg/actuation mist for inhalation (Spiriva Respimat) 1 puff inhalation DAILY 02/15/21 [History Last Taken Unknown] albuterol sulfate 90 mcg/actuation aerosol inhaler (ProAir HFA) 2 puff inhalation Q6H PRN 03/06/21 [History Last Taken Unknown] fexofenadine 180 mg tablet ([place] Allergy) 180 mg PO DAILY 03/06/21 [History Last Taken Unknown] fluticasone furoate 200 mcg-vilanterol 25 mcg/dose inhalation powder (Breo Ellipta) 1 inh inhalation DAILY 03/06/21 [History Last Taken Unknown] gabapentin 100 mg capsule 200 mg PO DAILY 03/06/21 [History Last Taken Unknown] guaifenesin 600 mg tablet, extended release 12 hr (Mucinex) 600 mg PO BID 03/06/21 [History Last Taken Unknown] hydralazine 10 mg tablet 10 mg PO TID 03/06/21 [History Last Taken Unknown] magnesium oxide 400 mg (241.3 mg magnesium) tablet 400 mg PO DAILY 03/06/21 [History Last Taken Unknown] metoprolol tartrate 25 mg tablet 25 mg PO BID 03/06/21 [History Last Taken Unknown] omeprazole 40 mg capsule,delayed release 40 mg PO BID 03/06/21 [History Last Taken Unknown] sodium bicarbonate 650 mg tablet 650 mg PO BID 03/06/21 [History Last Taken Unknown] tamsulosin 0.4 mg capsule 0.4 mg PO QHS 03/06/21 [History Last Taken Unknown] atorvastatin 80 mg tablet 80 mg PO QHS #90 tabs 06/19/21 [Rx Last Taken Unknown] levothyroxine 50 mcg tablet 50 mcg PO DAILY 06/19/21 [History Last Taken Unknown] phenazopyridine 200 mg tablet (Pyridium) 200 mg PO TID 6 doses #6 tabs 06/20/21 [Rx Last Taken Unknown] sulfamethoxazole 800 mg-trimethoprim 160 mg tablet 1 tab PO BID #14 TABLETS 06/20/21 [Rx Last Taken Unknown] hydrocodone-acetaminophen 5-325mg 5mg-325mg 1 tab PO Q4H PRN PRN Pain 3 days #8 TABLETS 12/21/22 [Rx Last Taken Unknown] Allergy/AdvReac Type Severity Reaction Status Date / Time bee venom protein (honey bee) Allergy Anaphylaxis Verified 12/21/22 19:46 Family History Mother Thyroid disorder Cancer Ovarian Father Cancer Prostate Grandmother CVA (cerebral vascular accident) Surgical History History of ankle surgery History of hernia repair History of tonsillectomy History of transurethral resection of prostate (~12/15/20) Social History Smoking Status: Former smoker alcohol intake: current details: 12 Cans of Beer per week substance use type: marijuana ROS <ALBERT Padilla - Last Filed: 12/21/22 20:34> ROS ED Constitutional Constitutional ED: Denies chills or fever(s) Cardiovascular Cardiovascular: Denies chest pain Respiratory/Chest Respiratory/Chest: Denies cough or dyspnea Gastrointestinal Gastrointestinal: Reports abdominal pain; Denies constipation, nausea or vomiting Genitourinary Genitourinary ED: Denies dysuria, hematuria or urinary urgency Musculoskeletal Musculoskeletal: Denies arthralgias or myalgias Integumentary Denies abscess, Abrasions or rash Neurologic Neurologic: Denies weakness EXAM <ALBERT Padilla - Last Filed: 12/21/22 20:34> Physical Exam Const Vital Signs: 12/21/22 19:43 Temperature 97.8 F Temperature Source Temporal Pulse Rate 90 Respiratory Rate 15 Blood Pressure 139/96 H Blood Pressure Mean 110 Pulse Ox 98 Oxygen Delivery Method Room Air Positive well nourished, well developed and no apparent distress General Appearance ED: well developed HEENT Reports normocephalic and head/scalp atraumatic Mouth ED: Yes moist mucous membranes normal Eyes PERRL and EOMs intact bilaterally Neck full ROM and supple Chest Wall inspection of chest normal Resp normal respiratory effort and clear to auscultation bilaterally Cardio regular rate and regular rhythm GI soft to palpation, non-tender, non-distended and no masses Narrative: Circumcised, descended testicles, right-sided hernia examination performed, no hernia noted on examination, no pain with palpation of the inguinal canal on the right side. Back/Spine normal ROM and normal to inspection Extremity normal to inspection and full ROM Neuro oriented x3, CN's II-XII intact bilaterally, moves all extremities, no focal motor deficits and no sensory deficits noted Sensorium / Orientation: awake and alert Psych mental status grossly normal and thought process normal Skin no rashes or lesions noted and no wounds <Dr. Doni Lee DO - Last Filed: 12/22/22 02:05> Physical Exam Const Vital Signs: 12/21/22 19:43 Temperature 97.8 F Temperature Source Temporal Pulse Rate 90 Respiratory Rate 15 Blood Pressure 139/96 H Blood Pressure Mean 110 Pulse Ox 98 Oxygen Delivery Method Room Air Narrative: Circumcised, 2 descended testicles, bilateral hernia examination performed, no hernia noted on examination, no pain with palpation of the inguinal canal bilateral. [facility] <ALBERT Padilla - Last Filed: 12/21/22 20:34> [facility] Narrative Medical decision making narrative: Presenting due to a right inguinal hernia that he has had for several years. He reports that it is near his mons pubis, I am not feeling any hernia on examination. He has a soft and nontender abdomen. He has been having normal bowel movements, I do not think that patient has an incarceration/ strangulation of the hernia. He is well-appearing and in no acute distress, vitals are unremarkable. I will give him a surgery referral but he does have a surgeon with the [facility] that he would like to follow-up with. I will give him pain control for home and he will be discharged home in stable condition. He is comfortable with plan. He has been given return instructions. <Dr. Doni Lee DO - Last Filed: 12/22/22 02:05> [facility] Treatment and Re-Evaluation :: I, Dr Lee, have reviewed the above progress note and course of action in the ER; agree with the above. I have personally seen and evaluated this patient, gone over history and physical, and discussed disposition and treatment plan with the patient. Discharge Plan Triage Chief Complaint: Abd Pain ED Midlevel Provider: Tabby Cedeno ED Provider: Doni Lee Dx/Rx/DC Orders Clinical Impression: Hernia, inguinal, right Instructions: ED Hernia (Adult) Prescriptions: New hydrocodone-acetaminophen 5-325 mg tablet 1 tab PO Q4H PRN PRN (Reason: Pain) 3 Days Qty: 8 0RF No Action gabapentin 100 mg capsule 200 mg PO DAILY hydralazine 10 mg tablet 10 mg PO TID metoprolol tartrate 25 mg tablet 25 mg PO BID omeprazole 40 mg capsule,delayed release(DR/EC) 40 mg PO BID magnesium oxide 400 mg (241.3 mg magnesium) tablet 400 mg PO DAILY sodium bicarbonate 650 mg tablet 650 mg PO BID Breo Ellipta 200-25 mcg/dose blister with device 1 inh inhalation DAILY tamsulosin 0.4 mg capsule 0.4 mg PO QHS albuterol sulfate [ProAir HFA] 90 mcg/actuation HFA aerosol inhaler 2 puff inhalation Q6H PRN guaifenesin [Mucinex] 600 mg tablet extended release 12hr 600 mg PO BID fexofenadine [[place] Allergy] 180 mg tablet 180 mg PO DAILY levothyroxine 50 mcg tablet 50 mcg PO DAILY atorvastatin 80 mg tablet 80 mg PO QHS Qty: 90 3RF hydrochlorothiazide 25 MG tablet 25 mg PO DAILY bupropion HCl 150 MG tablet sustained-release 12 hr 150 mg PO BID oxybutynin chloride 10 mg tablet extended release 24hr 10 mg PO DAILY Label Comments: Take 1 tablet by mouth once daily. amlodipine 5 mg tablet 5 mg PO DAILY Label Comments: Take 1 tablet by mouth once daily. aspirin 81 mg tablet,delayed release (DR/EC) 81 mg PO DAILY Label Comments: Take 1 tablet by mouth once daily. Spiriva Respimat 2.5 mcg/actuation mist 1 puff INHALATION DAILY Label Comments: INHALE 2 (TWO) puffs DIRECTED once DAILY sulfamethoxazole-trimethoprim [sulfamethoxazole-trimethoprim] 1 TABLET tablet 1 tab PO BID Qty: 14 0RF phenazopyridine [Pyridium] 200 mg tablet 200 mg PO TID Qty: 6 0RF Primary Care Provider: Rei Morgan Referrals: Rei Morgan DO [Primary Care Provider] - Sheba Gallardo MD [Med Staff - Active Staff] - 5-7 Days Activity Restrictions/Additional Instructions: I have given you a general surgery referral but if you prefer to follow-up with your general surgeon, that is fine. Please follow-up with them in the next 5 to 7 days and return for any worsening of symptoms. Disposition Disposition: Home, Self Care Discharge Date/Time: 12/21/22 20:35
== END 2022-12-21 20:35 | disposition home or self-care (01) ==
PROVIDERS: Emergency Provider Emergency Medicine; PCP Student in an Organized Health Care Education/Training Program; Referring Provider Emergency Medicine; Visit Provider Emergency Medicine
DX: K40.90 Unilateral inguinal hernia, without obstruction or gangrene, not specified as recurrent (principal); F12.90 Cannabis use, unspecified, uncomplicated; I25.10 Atherosclerotic heart disease of native coronary artery without angina pectoris; I25.2 Old myocardial infarction; Z87.891 Personal history of nicotine dependence
CPT/HCPCS: 99282

== ENCOUNTER 2023-11-28 05:18 | Day surgery (SDC) | payer MEDICARE, MEDICAID, SELFPAY ==
[2023-11-28 05:58] VITALS: BP 165/89; PULSE 62; RESP 16; TEMP 36.7; O2SAT 100; BMI 21.2
[2023-11-28] MEDS: Lactated Ringers 1,000 ML 15 ML IV (06:12)
[2023-11-28] MEDS: Magnesium 1 GM over 15 mins IV (06:13)
[2023-11-28] MEDS: Acetaminophen 500 MG Tablet 1000 MG PO (06:14)
[2023-11-28] MEDS: Gabapentin 600 MG Tablet PO (06:14)
--- NOTE | 2023-11-28 07:18 | RAD_ITS ---
STUDY: X-RAY - LEFT ANKLE REASON FOR EXAM: Male, 63 years old. ERAS, REMOVAL OF PAINFUL RETAINED HARDWARE TECHNIQUE: 3 views of the left ankle. COMPARISON: None. FINDINGS: There is a K wire and screw in the medial malleolus of the distal tibia. There is evidence of old hardware removal from the distal fibula, with old screw tracks. Normal tibiotalar articulation and ankle mortise. Intact visualized talus and calcaneus. There is soft tissue swelling along the lateral aspect of the ankle. RAD/Ankle 2 Views IMPRESSION: K wire and screw in the medial malleolus of the distal tibia. Evidence of old hardware removal from the distal fibula, with old screw tracks. Soft tissue swelling along the lateral aspect of the ankle. Electronically Signed: Barrington Maldonado MD at 9:56 EDT ,
[2023-11-28] MEDS: Cefazolin 2 GM in 0.9% Normal Saline (100mL Bag) 100 ML IV (07:30)
[2023-11-28] MEDS: Bupivacaine Mpf 0.5% 30 ML VIAL ×2 (07:40→08:34)
[2023-11-28 08:28] LABS: Bedside Glucose 96 mg/dL (74-106)
[2023-11-28 08:50] VITALS: BP 143/100; BP 165/89; PULSE 77; RESP 16; TEMP 36.7; O2SAT 95
--- NOTE | 2023-11-28 08:52 | OP.PCM_ITS ---
Problems Associated Problem List Diagnoses (1) Pain in left leg: (2) Pain due to internal orthopedic prosthetic devices, implants and grafts, initial encounter: Report of Operation Date of Procedure: 11/28/23 Pre-Operative Diagnosis: 1. Pain, left lower extremity 2. Pain secondary to orthopedic hardware, left lower extremity Post-Operative Diagnosis: 1. Pain, left lower extremity 2. Pain secondary to orthopedic hardware, left lower extremity Surgery/Procedure Performed:: 1. Left lower extremity hardware removal Description of Surgical Findings:: 1. Complete removal of orthopedic hardware from the fibula with removal of the interfrag screw. 2. Mini C-arm fluoroscopy confirmed removal of all hardware. 3. Medial malleolus hardware left intact secondary to no pain. 4. Application of demineralized bone matrix applied to the evacuated screw holes to the left fibula. Surgeon: Sahil Durbin latin dancer: Malia Sheriff Type of Anesthesia: General and Local Anesthesiologist: Thomas Tabares Medications: Per anesthesia Specimen's removed: Orthopedic hardware left ankle Drains: None Estimated Blood Loss (mL): 10 mL Fluids Replaced: Per anesthesia Description of Procedure: Indications For Operation: Mr. Claros is a 61-year-old male who was admitted to [facility] for elective hard removal to the left ankle. Patient had suffered an ankle fracture many years ago and was taken for open reduction total fixation by an outside provider. Over the last few years the patient has been having pain to left ankle secondary to protruding hardware due to his thin skin. Patient was seen in the office for surgical consultation with all risk and benefits discussed with him in great detail. He was booked for elective hardware removal and understood all risk and benefits. Due to nature of the patient's left lower extremity pain and had deemed necessary at this time to take the patient the operating room to perform the above procedure to help relieve his constant pain. The nature of the problem, anticipated procedures, postop recovery/convalences and risk/complications include but not limited to infection, wound healing complications, digital amputation, hypertrophic scarring, numbness, tingling, chronic pain, CRPS, over and under correction, recurrence of deformity, DVT and or PE and the need for further surgery have been discussed in great detail with the patient. All questions have been answered to the patient's satisfaction. There are no guarantees given as to the outcome of the procedure. Description of Procedure: Under mild sedation, the patient was brought into the operating room and placed on the operating table in supine position. Once the patient was under general anesthesia with laryngeal mask airway, the left lower extremity was blocked using approximately 30 cc 0.5% Marcaine plain. Next, a well-padded thigh to urniquet was applied to the left lower extremity. Next, the left lower extremity was prepped and draped in normal aseptic manner. Next, a timeout was then undertaken verifying the correct patient, extremity, visibility of preoperative markings, availability of the equipment. Next, attention was directed to the left lower extremity. Using a 6 inch Esmarch, left lower extremity was exsanguinated and elevated to 60 degrees for 1 minute. Procedure #1: Removal of painful retained hardware, left lower extremity Next, attention was directed to the left lower extremity. Following the old incision jhon, a sterile skin marker was applied to the existing scar on the lateral aspect of the fibula. Using a #15 blade a full-thickness vision down to hardware was made without incident. All bleeders were cauterized and ligated as necessary. Using a khan elevator the scar tissue was removed from the intact orthopedic hardware to the level of the lateral fibula. Using a combination of a hexagon #10 and #8 screwdriver, all screws were removed from the lateral plate with removal of the interfrag screw without incident. Using a osteotome and mallet the lateral plate was removed and lifted off the fibula without incident. There showed complete trabeculation and fusion across the fracture site of the fibula. The bony prominences were smoothed out with a [place] rasp. The incision was flushed with couple anand normal saline. [place] DBM was applied to all screw holes. Again the incision was flushed with copious normal saline. The deep tissue was closed with 3-0 Monocryl and running locking suture technique. The left thigh tourniquet was deflated and instant reperfusion was noted to the left lower extremity. All bleeders were cauterized and ligated as necessary. The subcutaneous layer was closed with 3-0 Monocryl in running suture technique. The skin was closed and reapproximated using 2-0 nylon in simple interrupted suture technique. The left lower extremity was wiped clean and patted dry. 1 cc of via flow was injected into incision to help with scar tissue and healing. Next, the incision was dressed with Betadine soaked Adaptic dry sterile dressing and a 2 layer Mcihel AO splint at 90 degrees was applied to the left lower extremity. Final intraoperative radiographs were taken with mini C arm and 3 view view of the ankle that showed complete removal of the hardware across the fibula and interfrag screw. The medial malleolus hardware was left intact secondary to no pain. The patient tolerated the procedure and anesthesia well and apparent satisfactory condition and was transported to the PACU for further monitoring prior to discharge home. Vital signs stable and vascular status intact to all digits bilateral. Post Operative Plan: Weightbearing: No weightbearing with crutches to left lower extremity. Full weightbearing to the right lower extremity. Antibiotics: 2 g Ancef through the IV DVT Prophylaxis: 81 mg aspirin Allison: None Dressing: Betadine soaked Adaptic, dry sterile dressing, 2 layer Michel AO splint at 90 degrees. X-Rays: Post-operative films taken on the operating room. Pain Medication: Percocet 5/325, Flexeril 10 mg Follow-up: Patient will follow-up in [address] Durbin in private office. Grafts/Implants Used: 1 cc via flow Complications None Admit VTE Documentation VTE Present on Admission: No VTE Mechan Device Prophylaxis: SCD's VTE Pharm Prophylaxis ordered?: Yes
[2023-11-28 08:59] VITALS: BP 156/100; BP 165/89; PULSE 73; RESP 16; O2SAT 98
[2023-11-28 09:08] VITALS: BP 159/96; BP 165/89; PULSE 73; RESP 16; TEMP 36.6; O2SAT 98
[2023-11-28 09:39] VITALS: BP 165/89
== END 2023-11-28 10:37 | disposition home or self-care (01) ==
LOC: SDC 05:19 → AC 05:19
PROVIDERS: PCP Student in an Organized Health Care Education/Training Program; Referring Provider Podiatrist Foot & Ankle Surgery; Visit Provider Podiatrist Foot & Ankle Surgery
PROC: (CPT 20680; principal; 2023-11-28 07:15)
DX: T84.84XA Pain due to internal orthopedic prosthetic devices, implants and grafts, initial encounter (principal); J44.9 Chronic obstructive pulmonary disease, unspecified; M79.605 Pain in left leg; M25.572 Pain in left ankle and joints of left foot; I25.2 Old myocardial infarction; I10 Essential (primary) hypertension; F12.90 Cannabis use, unspecified, uncomplicated; E78.00 Pure hypercholesterolemia, unspecified; K21.9 Gastro-esophageal reflux disease without esophagitis; E03.9 Hypothyroidism, unspecified; M51.36 Other intervertebral disc degeneration, lumbar region; E07.9 Disorder of thyroid, unspecified; Z79.82 Long term (current) use of aspirin; Z79.899 Other long term (current) drug therapy; Z79.51 Long term (current) use of inhaled steroids; Z87.891 Personal history of nicotine dependence; X58.XXXA Exposure to other specified factors, initial encounter
CPT/HCPCS: 20680; 01480; 73600; 76000; 82962; C1713; J7120; J2405; J3475

== ENCOUNTER 2024-08-28 22:28 | Emergency (ER) | payer MEDICAID, MEDICARE, SELFPAY ==
[2024-08-28 22:30] VITALS: BP 152/99; PULSE 75; RESP 18; TEMP 36.4; O2SAT 97; BMI 20.2
[2024-08-28] MEDS: 0.9% Normal Saline (500mL Bag) 500 ML 999 ML IV (23:15)
[2024-08-28 23:57] LABS: Anion Gap 5 (5-15); BUN 11 mg/dL (7-18); BUN/Creat Ratio 13.2 RATIO (10-20); Calcium,Total 8.8 mg/dL (8.5-10.1); Chloride 102 mmol/L (98-107); Creatinine, Serum 0.84 mg/dL (0.70-1.30); EST Glomerular Filtration Rate 99 mL/min (>60); Est Glom Filt Rate - Afr Amer 119 mL/min (>60); Estimated Creatinine Clearance 76.64 ml/min; Glucose 80 mg/dL (74-106); Potassium 3.8 mmol/L (3.5-5.1); Sodium Level 134 mmol/L (136-145)
[2024-08-29 00:11] LABS: Absolute Neutrophil Count 5.3 X10^3/uL (2.0-7.7); Basophil% 1.1 % (0-1); Eosinophil# 0.07 X10^3/uL; Eosinophils% 0.8 % (0-5); Hematocrit 39.5 % (40-54); Hemoglobin 13.1 g/dL (13.0-16.5); Lymphocyte % 26.7 % (19-41); Mean Corp Hgb Conc 33.2 g/dL (32-36); Mean Corpuscular Hgb 30.6 pg (27.0-32.0); Mean Corpuscular Volume 92.3 fL (80-94); Mean Platelet Vol. 10.2 fl (6.2-12.0); Monocyte% 8.9 % (0-10); NRBC Flagged by Analyzer 0 % (0-5); Platelet Count 408 K/mm3 (150-450); RBC Distribution Width CV 13.6 % (11.6-14.6); RBC Distribution Width SD 46.5 fl (35.1-43.9); Red Blood Count 4.28 M/mm3 (4.6-6.2)
[2024-08-29 00:29] VITALS: BP 105/76; PULSE 75; RESP 17; O2SAT 96
[2024-08-29 02:00] VITALS: BP 128/72; PULSE 82; RESP 15; O2SAT 99
[2024-08-29] MEDS: Lidocaine Jelly 2% 20 ML Syringe (URO-JET) 1 APPLIC TOPICAL (02:00)
--- NOTE | 2024-08-29 02:27 | EX.ED.DYSGE1 ---
HPI History of Present Illness Chief Complaint: Abd Pain Informant: patient and EMS Narrative Narrative: Patient is a 64-year-old male with past medical history of hypertension hyperlipidemia COPD and hypothyroidism. He states he has a history of inguinal hernias that were repaired surgically years ago. He states he has noticed increased pain to the right inguinal region where his previous hernia was. He states has been no trauma or excessive activity. He states he has been using [id number] medications with minimal symptom improvement. He also reports he has been urinating frequently but not a large amount and denies any dysuria associated with it. Secondary to the increasing/persistent pain he called EMS and was brought in for evaluation [facility] Medical History (Updated 09/03/24 @ 06:[address] Edu Cruz, DO) Wears glasses Cancer Alcohol use Thyroid disease Arthritis High cholesterol Back pain History of ulceration Gastric reflux Former smoker History of pain when walking History of edema History of echocardiogram History of stress test Cardiology follow-up encounter Lung nodule Acute systolic (congestive) heart failure Prostate cancer MONISHA (acute kidney injury) DDD (degenerative disc disease) Cleft palate Pure hypercholesterolemia Essential hypertension Aortic root dilatation History of non-ST elevation myocardial infarction (NSTEMI) COPD (chronic obstructive pulmonary disease) Hypertension Home Medications ?Medication ?Instructions ?Recorded ?Last Taken ?Type bupropion HCl 150 mg tablet,12 hr 150 mg PO BID 10/24/20 11/27/23 History sustained-release aspirin 81 mg tablet,delayed 81 mg PO DAILY 02/15/21 11/27/23 History release tiotropium bromide 2.5 2 puff inhalation DAILY 02/15/21 11/28/23 02:00 History mcg/actuation mist for inhalation (Spiriva Respimat) albuterol sulfate 90 mcg/actuation 2 puff inhalation Q6H PRN 03/06/21 11/28/23 02:00 History aerosol inhaler (ProAir HFA) shortness of breath or wheezing fluticasone furoate 200 1 inh inhalation DAILY 03/06/21 11/28/23 02:00 History mcg-vilanterol 25 mcg/dose inhalation powder (Breo Ellipta) gabapentin 100 mg capsule 200 mg PO DAILY 03/06/21 11/27/23 History hydralazine 10 mg tablet 10 mg PO BID 03/06/21 11/28/23 02:30 History magnesium oxide 400 mg (241.3 mg 400 mg PO DAILY 03/06/21 11/27/23 History magnesium) tablet metoprolol tartrate 25 mg tablet 25 mg PO DAILY 03/06/21 11/28/23 02:30 History omeprazole 40 mg capsule,delayed 40 mg PO BID 03/06/21 11/27/23 History release atorvastatin 80 mg tablet 80 mg PO QHS #90 tabs 06/19/21 11/27/23 Rx levothyroxine 75 mcg tablet 75 mcg PO DAILY disorder of 11/25/23 11/28/23 02:30 History thyroid gland mirtazapine 15 mg tablet 15 mg PO QHS depressive disorder 11/25/23 11/27/23 History ascorbic acid (vitamin C) 1,000 mg 1 g PO DAILY 90 days #90 tabs 11/28/23 Unknown Rx tablet (Vitamin C) aspirin 81 mg tablet,delayed 81 mg PO DAILY 30 days #30 tabs 11/28/23 Unknown Rx release calcium 500 mg (as 1 tab PO DAILY 90 days #90 tabs 11/28/23 Unknown Rx carbonate)-vitamin D3 15 mcg (600 unit) tablet (Os-Naldo 500 + D3) cyclobenzaprine 10 mg tablet 10 mg PO TID muscle spasm 7 days 11/28/23 Unknown Rx #21 tabs docusate sodium 100 mg capsule 100 mg PO DAILY 10 days #10 caps 11/28/23 Unknown Rx (Colace) oxycodone-acetaminophen 5 mg-325 1 tab PO Q6H pain 7 days #28 tabs 11/28/23 Unknown Rx mg tablet (Endocet) Allergy/AdvReac Type Severity Reaction Status Date / Time bee venom protein (honey bee) Allergy Anaphylaxis Verified 08/28/24 22:29 Family History Mother Thyroid disorder Cancer Ovarian Father Cancer Prostate Grandmother CVA (cerebral vascular accident) Surgical History History of dental surgery Hx of surgical procedure History of tonsillectomy History of ankle surgery History of hernia repair History of transurethral resection of prostate (~12/15/20) Social History Smoking Status: Former smoker alcohol intake: current details: 12 Cans of Beer per week substance use type: marijuana ROS ROS ED Constitutional Constitutional ED: Denies chills or fever(s) Eyes Eyes: Denies change in vision ENT ENT ED: Denies sore throat Cardiovascular Cardiovascular: Denies chest pain Respiratory/Chest Respiratory/Chest: Denies cough or dyspnea Gastrointestinal Gastrointestinal: Reports abdominal pain and nausea; Denies diarrhea or vomiting Genitourinary Genitourinary ED: Reports urinary frequency; Denies dysuria or hematuria Musculoskeletal Musculoskeletal: Denies back pain Integumentary Denies rash Neurologic Neurologic: Denies headache(s) Hematologic/Lymphatic Hematologic/Lymphatic: Denies easy bleeding or easy bruising EXAM Physical Exam Const Vital Signs: 08/28/24 22:30 08/29/24 00:29 08/29/24 02:00 Temperature 97.6 F L Temperature Source Oral Pulse Rate 75 75 82 Respiratory Rate 18 17 15 Blood Pressure 152/99 H 105/76 128/72 H Blood Pressure Mean 116 85 90 Pulse Ox 97 96 99 Oxygen Delivery Method Room Air Room Air Room Air Positive well nourished and well developed General Appearance ED: well developed; Negative for pallor HEENT HEENT Narrative: No signs of infection noted in the posterior pharynx Normocephalic atraumatic Eyes PERRL and EOMs intact bilaterally General Eye ED: Negative for scleral icterus Neck supple Neck Narrative: No nuchal rigidity or meningeal signs Resp normal respiratory effort Resp Narrative: Breath sounds are diminished throughout with diffuse expiratory wheeze and rhonchi in the bilateral bases consistent with history of COPD without signs of respiratory distress Cardio regular rate and regular rhythm Rate: other Other Details: Radial and carotid pulses are equal and symmetric GI GI Narrative: In the suprapubic/midline lower abdomen there is organomegaly consistent with a distended bladder and pain with palpation over this region Patient also has pain on palpation in the right inguinal region with small mass noted most consistent with a inguinal hernia that it feels reducible in nature Auscultation: normoactive bowel sounds Palpation: soft Narrative: No testicular masses or swelling No blood or discharge from the urethral meatus No overlying soft tissue changes to suggest Sahil's gangrene Back/Spine no CVA tenderness Extremity normal to inspection Neuro oriented x3, CN's II-XII intact bilaterally and no sensory deficits noted Sensorium / Orientation: alert Motor Exam: strength 5/5 throughout Psych mental status grossly normal Skin no rashes or lesions noted General Skin Exam: Negative for jaundice or pallor MDM MDM MDM Narrative Medical decision making narrative: Patient presented to the ER hypertensive but has a past medical history of this and is in pain and otherwise vitals are stable. His exam shows changes consistent with acute urinary retention as well as reducible fat-containing inguinal hernia. In order to rule out incarceration or signs of necrosis basic labs were obtained with CT scan of the abdomen and pelvis. Also in order to ensure there is no obstructive nephropathy causing acute kidney injury basic labs ordered. Patient's white count is normal there is no left shift and lactic acid is normal going against acute ischemia. Patient does not have MONISHA or clinically significant electrolyte abnormalities. CT scan showed a fat-containing inguinal hernia without signs of necrosis or obstruction as well as a distended bladder consistent with urinary retention. The patient had a Allison catheter placed which drained him with 2 L of urine and afterwards there was resolution of the organomegaly and also improvement of his abdominal pain. Therefore at this time as the urinary tension has been corrected he does not have signs of MONISHA or incarcerated hernia or intestinal necrosis there is no need for further workup as an inpatient and he is otherwise safe for discharge with outpatient follow-up. History & Record Review Discussion w/independent historian: Patient Lab Data Attestation: I reviewed the patient's lab results. Labs: Laboratory Results - last 24 hr 08/28/24 23:17 WBC 9.0 RBC 4.28 L Hgb 13.1 Hct 39.5 L MCV 92.3 MCH 30.6 MCHC 33.2 RDW Std Deviation 46.5 H RDW Coeff of Cr 13.6 Plt Count 408 MPV 10.2 Immature Gran % (Auto) 3.500 H Neut % (Auto) 59.0 Lymph % (Auto) 26.7 Camp % (Auto) 8.9 Eos % (Auto) 0.8 Baso % (Auto) 1.1 H Absolute Neuts (auto) 5.3 Absolute Lymphs (auto) 2.40 Nucleated RBC % 0 Sodium 134 L Potassium 3.8 Chloride 102 Carbon Dioxide 27.0 Anion Gap 5 BUN 11 Creatinine 0.84 Estim Creat Clear Calc 76.64 Est GFR (MDRD) Af Amer 119 Est GFR (MDRD) Non-Af 99 BUN/Creatinine Ratio 13.2 Glucose 80 Lactic Acid 1.0 Calcium 8.8 Radiography Diagnostic Testing: Clinical Impression(s) from Imaging Studies Abdomen/Pelvis CT 08/29/24 23:02 IMPRESSION: 1. Small fat containing right inguinal hernia without inflammation. 2. Mild bilateral hydroureteronephrosis without obstructing calculi. Dilated urinary bladder with irregular contour which may relate to neurogenic bladder. Please correlate. 3. Severe distal right common femoral artery stenosis. 4. Additional findings as above. One or more dose reduction techniques were used (e.g., Automated exposure control, adjustment of the mA and/or kV according to patient size, use of iterative reconstruction technique). Reading [facility]: [facility] Discharge Plan Triage Chief Complaint: Abd Pain ED Provider: Edu Cruz Dx/Rx/DC Orders Clinical Impression: Acute urinary retention, Inguinal hernia, right, COPD (chronic obstructive pulmonary disease), Essential hypertension, Hyperlipidemia Instructions: ED Hernia (Adult), ED Urinary Retention, Male Prescriptions: No Action gabapentin 100 mg capsule 200 mg PO DAILY hydralazine 10 mg tablet 10 mg PO BID metoprolol tartrate 25 mg tablet 25 mg PO DAILY Rx Instructions: BOTTLE SAYS BID BUT PT TAKES IT DAILY omeprazole 40 mg capsule,delayed release(DR/EC) 40 mg PO BID magnesium oxide 400 mg (241.3 mg magnesium) tablet 400 mg PO DAILY Breo Ellipta 200-25 mcg/dose blister with device 1 inh inhalation DAILY albuterol sulfate [ProAir HFA] 90 mcg/actuation HFA aerosol inhaler 2 puff inhalation Q6H PRN (Reason: shortness of breath or wheezing) atorvastatin 80 mg tablet 80 mg PO QHS Qty: 90 3RF bupropion HCl 150 MG tablet sustained-release 12 hr 150 mg PO BID aspirin 81 mg tablet,delayed release (DR/EC) 81 mg PO DAILY Patient Comments: Take 1 tablet by mouth once daily. Spiriva Respimat 2.5 mcg/actuation mist 2 puff INHALATION DAILY Patient Comments: INHALE 2 (TWO) puffs DIRECTED once DAILY levothyroxine 75 mcg tablet 75 mcg PO DAILY mirtazapine 15 mg tablet 15 mg PO QHS oxycodone-acetaminophen [Endocet] 5-325 mg tablet 1 tab PO Q6H 7 Days Qty: 28 0RF aspirin 81 mg tablet,delayed release (DR/EC) 81 mg PO DAILY 30 Days Qty: 30 0RF docusate sodium [Colace] 100 mg capsule 100 mg PO DAILY 10 Days Qty: 10 0RF cyclobenzaprine 10 mg tablet 10 mg PO TID 7 Days Qty: 21 0RF calcium carbonate-vitamin D3 [Os-Naldo 500 + D3] 500 mg-15 mcg (600 unit) tablet 1 tab PO DAILY 90 Days Qty: 90 0RF ascorbic acid (vitamin C) [Vitamin C] 1,000 mg tablet 1 g PO DAILY 90 Days Qty: 90 0RF Primary Care Provider: Rei Morgan Referrals: Rei Morgan DO [Primary Care Provider] - Kali Burks MD [Med Staff - Active Staff] - 3-5 Days (Urinary retention) Juan Carlos Lepe MD [Med Staff - Active Staff] - 1-2 Weeks (Right inguinal hernia) Activity Restrictions/Additional Instructions: Please follow-up with the urologist secondary to the need for Allison catheter placement from urinary retention. You can also follow-up with general surgery to discuss any potential need for surgical fixation of your fat-containing right inguinal hernia. Return to the ER should you have any further concerns Print Language: Icelandic Disposition Disposition: Home, Self Care Discharge Date/Time: 08/29/24 03:05
--- NOTE | 2024-08-29 23:02 | CT_ITS ---
PROCEDURE: CT abdomen pelvis with IV contrast REASON FOR EXAM: Right groin pain, hernia TECHNIQUE: Multiple contiguous axial images through the abdomen and pelvis were obtained after the administration of intravenous contrast. Two-dimensional coronal and sagittal reformatted images were reconstructed. Low-dose imaging technique was utilized. COMPARISON: None. FINDINGS: Lung bases are clear. Liver, spleen, pancreas and adrenal glands are intact. Gallbladder is satisfactory. No significant biliary ductal dilation. Kidneys enhance symmetrically. No suspicious renal mass or calculi. Mild bilateral hydroureteronephrosis without obstructing calculi. Marked dilation of the bladder width irregular contour which may relate to neurogenic bladder. No significant bladder wall thickening or pericholecystic inflammation. Posttreatment changes of the prostate gland. No bowel obstruction, focal bowel wall thickening or significant perienteric inflammation. Normal appendix. No pelvic free fluid. No free air. Severely calcified nonaneurysmal abdominal aorta. Severe stenosis of the distal right common femoral artery. No bulky adenopathy. Small fat containing right inguinal hernia without inflammation. Fat containing umbilical hernia. No acute osseous abnormality. Early bilateral femoral head avascular necrosis. Degenerative changes of the lumbar spine. CT/Abdomen/Pelvis W IV Cont ONLY IMPRESSION: 1. Small fat containing right inguinal hernia without inflammation. 2. Mild bilateral hydroureteronephrosis without obstructing calculi. Dilated u rinary bladder with irregular contour which may relate to neurogenic bladder. Please correlate. 3. Severe distal right common femoral artery stenosis. 4. Additional findings as above. One or more dose reduction techniques were used (e.g., Automated exposure contr ol, adjustment of the mA and/or kV according to patient size, use of iterative reconstruction technique). Reading Location: [facility]
== END 2024-08-29 03:05 | disposition home or self-care (01) ==
PROVIDERS: Emergency Provider Emergency Medicine; PCP Student in an Organized Health Care Education/Training Program; Visit Provider Emergency Medicine
DX: R33.9 Retention of urine, unspecified (principal); J44.9 Chronic obstructive pulmonary disease, unspecified; K40.90 Unilateral inguinal hernia, without obstruction or gangrene, not specified as recurrent; R35.0 Frequency of micturition; I10 Essential (primary) hypertension; I25.2 Old myocardial infarction; E03.9 Hypothyroidism, unspecified; K21.9 Gastro-esophageal reflux disease without esophagitis; E78.00 Pure hypercholesterolemia, unspecified; M19.90 Unspecified osteoarthritis, unspecified site; Z85.46 Personal history of malignant neoplasm of prostate; Z87.19 Personal history of other diseases of the digestive system; Z79.82 Long term (current) use of aspirin; Z79.899 Other long term (current) drug therapy; Z79.890 Hormone replacement therapy; Z98.890 Other specified postprocedural states; Z87.891 Personal history of nicotine dependence
CPT/HCPCS: J2405; 51702; 74177; 80048; 83605; 85025; 96360; 96361; 99285; Q9967; A4216

== ENCOUNTER 2024-09-13 21:12 | Emergency (ER) | payer MEDICARE, MEDICAID, SELFPAY ==
[2024-09-13 21:13] VITALS: BP 148/93; PULSE 88; RESP 16; TEMP 36.1; O2SAT 98; BMI 19.9
[2024-09-13 21:46] LABS: Mucous, Urine 0 SEEN /hpf (<or=2+); Squamous Epithelial Cells - UA 0 SEEN /hpf (0-5); White Blood Cells 0 SEEN /hpf (0-5)
[2024-09-13 21:52] LABS: Color, Urine Yellow (Yellow); Glucose, Dipstick Normal (Normal); Ketone-Dipstick Negative (Negative); Leukocyte Esterase-Dipstick 500 /ul (Negative); Nitrite-Dipstick Negative (Negative); Occult Blood-Urine Negative /ul (Negative); Protein-Dipstick 15 mg/dl (Negative); Urine Bilirubin Dipstick Negative (Negative); Urine Clarity Sl. Cloudy (Clear); Urine Urobilinogen Normal (Normal); Urine pH 6.5 (5.0 - 8.0)
[2024-09-13 22:29] LABS: Bacteria 2+ /hpf (None Seen); Red Blood Cells-Urine 10-25 SEEN /hpf (0-5)
[2024-09-13 23:21] VITALS: BP 156/100; PULSE 103; RESP 18; O2SAT 97
--- NOTE | 2024-09-13 23:32 | CT_ITS ---
PROCEDURE: ABDOMEN/PELVIS WITHOUT CONT REASON FOR EXAM: RIGHT FLANK PAIN TECHNIQUE: Abdomen and pelvis CT without intravenous contrast. Coronal and sagittal reformatted images COMPARISON: 08/29/2024 FINDINGS: Noncontrast technique limits evaluation of the abdominal and pelvic viscera. Bilateral lower lobe basilar atelectasis. The bladder is now collapsed around a Allison catheter in place. No calcified bladder or ureteral stone identified. No hydronephrosis. A couple right renal cysts incidentally again noted. Bilateral symmetric appearing perinephric stranding is nonspecific and not significantly changed. The liver, adrenal glands, gallbladder, pancreas and spleen appear within limits on noncontrast imaging. Again note of a proper hepatic artery arising from the SMA, anatomic variant, incidental. Aortoiliac atherosclerotic calcifications again noted. No bowel dilation, free air or free fluid. Normal caliber appendix without secondary signs. Small fat containing umbilical hernia and very small right fat containing inguinal hernia without stranding again seen. Lower lumbar spondylosis/discogenic change with bilateral foraminal narrowing and left sided transitional segment again noted. CT/Abdomen/Pelvis without Cont IMPRESSION: Bilateral lower lobe basilar atelectasis. The bladder is now collapsed around a Allison catheter in place. No calcified didi dder or ureteral stone identified. No hydronephrosis. Bilateral symmetric appearing perinephric stranding is nonspecific and not sign ificantly changed. One or more dose reduction techniques were used (e.g., Automated exposure contr ol, adjustment of the mA and/or kV according to patient size, use of iterative reconstruction technique). Reading Location: [id number]
[2024-09-13] MEDS: Ketorolac 30 MG/ML Syringe IV (23:45)
[2024-09-14] MEDS: Ceftriaxone 1 GM/50 ML BAG IV (00:15)
--- NOTE | 2024-09-14 00:41 | EX.ED.DYSGE1 ---
HPI History of Present Illness Chief Complaint: Complaint Informant: patient Narrative Narrative: Patient is a 64-year-old male with past medical history of hypertension hyperlipidemia and COPD. He was seen in the ER few weeks ago secondary to abdominal pain and was found to have urinary retention. He states he followed up with the urologist and was informed that he can either self cath multiple times a day or have a chronic indwelling catheter. He states he did not want either of this and had the catheter removed. He states he has been urinating a small amount throughout the day but that today he has not been able to urinate and now has increasing lower abdominal pain and with concern that he will need a catheter replaced he presents for evaluation [facility] Medical History (Updated 09/14/24 @ 03:[address] Edu Cruz, DO) Wears glasses Cancer Alcohol use Thyroid disease Arthritis High cholesterol Back pain History of ulceration Gastric reflux Former smoker History of pain when walking History of edema History of echocardiogram History of stress test Cardiology follow-up encounter Lung nodule Acute systolic (congestive) heart failure Prostate cancer MONISHA (acute kidney injury) DDD (degenerative disc disease) Cleft palate Pure hypercholesterolemia Essential hypertension Aortic root dilatation History of non-ST elevation myocardial infarction (NSTEMI) COPD (chronic obstructive pulmonary disease) Hypertension Home Medications ?Medication ?Instructions ?Recorded ?Last Taken ?Type bupropion HCl 150 mg tablet,12 hr 150 mg PO BID 10/24/20 11/27/23 History sustained-release tiotropium bromide 2.5 2 puff inhalation DAILY 02/15/21 11/28/23 02:00 History mcg/actuation mist for inhalation (Spiriva Respimat) albuterol sulfate 90 mcg/actuation 2 puff inhalation Q6H PRN 03/06/21 11/28/23 02:00 History aerosol inhaler (ProAir HFA) shortness of breath or wheezing fluticasone furoate 200 1 inh inhalation DAILY 03/06/21 11/28/23 02:00 History mcg-vilanterol 25 mcg/dose inhalation powder (Breo Ellipta) gabapentin 100 mg capsule 200 mg PO DAILY 03/06/21 11/27/23 History hydralazine 10 mg tablet 10 mg PO BID 03/06/21 11/28/23 02:30 History magnesium oxide 400 mg (241.3 mg 400 mg PO DAILY 03/06/21 11/27/23 History magnesium) tablet metoprolol tartrate 25 mg tablet 25 mg PO DAILY 03/06/21 11/28/23 02:30 History omeprazole 40 mg capsule,delayed 40 mg PO BID 03/06/21 11/27/23 History release atorvastatin 80 mg tablet 80 mg PO QHS #90 tabs 06/19/21 11/27/23 Rx mirtazapine 15 mg tablet 15 mg PO QHS depressive disorder 11/25/23 11/27/23 History ascorbic acid (vitamin C) 1,000 mg 1 g PO DAILY 90 days #90 tabs 11/28/23 Unknown Rx tablet (Vitamin C) aspirin 81 mg tablet,delayed 81 mg PO DAILY 30 days #30 tabs 11/28/23 Unknown Rx release calcium 500 mg (as 1 tab PO DAILY 90 days #90 tabs 11/28/23 Unknown Rx carbonate)-vitamin D3 15 mcg (600 unit) tablet (Os-Naldo 500 + D3) cyclobenzaprine 10 mg tablet 10 mg PO TID muscle spasm 7 days 11/28/23 Unknown Rx #21 tabs docusate sodium 100 mg capsule 100 mg PO DAILY 10 days #10 caps 11/28/23 Unknown Rx (Colace) oxycodone-acetaminophen 5 mg-325 1 tab PO Q6H pain 7 days #28 tabs 11/28/23 Unknown Rx mg tablet (Endocet) levothyroxine 88 mcg tablet 88 mcg PO DAILY 09/13/24 Unknown History sulfamethoxazole 800 1 tab PO BID 7 days #14 tabs 09/14/24 Unknown Rx mg-trimethoprim 160 mg tablet (Bactrim DS) Allergy/AdvReac Type Severity Reaction Status Date / Time bee venom protein (honey bee) Allergy Anaphylaxis Verified 09/13/24 21:13 Family History Mother Thyroid disorder Cancer Ovarian Father Cancer Prostate Grandmother CVA (cerebral vascular accident) Surgical History History of dental surgery Hx of surgical procedure History of tonsillectomy History of ankle surgery History of hernia repair History of transurethral resection of prostate (~12/15/20) Social History Smoking Status: Former smoker alcohol intake: current details: 12 Cans of Beer per week substance use type: marijuana ROS ROS ED Constitutional Constitutional ED: Denies chills or fever(s) Eyes Eyes: Denies change in vision ENT ENT ED: Denies sore throat Cardiovascular Cardiovascular: Denies chest pain Respiratory/Chest Respiratory/Chest: Denies cough or dyspnea Gastrointestinal Gastrointestinal: Reports abdominal pain; Denies diarrhea, nausea or vomiting Genitourinary Genitourinary ED: Reports other Details: Positive urinary retention Musculoskeletal Musculoskeletal: Reports back pain Integumentary Denies rash Neurologic Neurologic: Denies headache(s) Hematologic/Lymphatic Hematologic/Lymphatic: Denies easy bleeding or easy bruising EXAM Physical Exam Const Vital Signs: 09/13/24 21:13 09/13/24 23:21 09/14/24 01:06 Temperature 97 F L 98.5 F Temperature Source Temporal Pulse Rate 88 103 H 75 Respiratory Rate 16 18 18 Blood Pressure 148/93 H 156/100 H 149/92 H Blood Pressure Mean 111 118 111 Pulse Ox 98 97 97 Oxygen Delivery Method Room Air Room Air Positive well nourished and well developed General Appearance ED: well developed; Negative for pallor HEENT HEENT Narrative: Normocephalic atraumatic Eyes PERRL and EOMs intact bilaterally General Eye ED: Negative for scleral icterus Neck supple Resp normal respiratory effort Resp Narrative: Breath sounds are diminished throughout with rhonchi and expiratory wheeze in the bilateral bases consistent with history of COPD but no signs of respiratory distress Cardio regular rate and regular rhythm Rate: other Other Details: Heart is regular rate and rhythm Radial and carotid pulses are equal and symmetric GI GI Narrative: There is a organomegaly noted in the lower mid abdomen/suprapubic region consistent with acute urinary retention/distended bladder. There is pain with palpation at this site. The remainder the exam is soft and nondistended with hypoactive bowel sounds. No voluntary guarding or rigidity or pulsatile mass Narrative: Normal circumcised male. No discharge noted from the urethral meatus. No testicular masses or swelling. No overlying soft tissue changes to suggest Sahil's gangrene Back/Spine Back/Spine Narrative: Positive right CVA pain is noted No overlying soft tissue changes to suggest trauma or infection Extremity normal to inspection Neuro oriented x3, CN's II-XII intact bilaterally and no sensory deficits noted Sensorium / Orientation: alert Motor Exam: strength 5/5 throughout Psych mental status grossly normal Skin no rashes or lesions noted General Skin Exam: Negative for jaundice or pallor MDM MDM MDM Narrative Medical decision making narrative: Patient presented to the ER hypertensive but has a past medical history of this and otherwise with stable vitals. He states that he was informed he needs to perform self-catheterization or have a chronic indwelling catheter but did not want either of these options. Therefore the fact that he reports difficulty with urination is not overly surprising. As his symptoms only been present for a few hours concern for acute kidney injury is low and as he had blood work done just recently that showed no sign of MONISHA do not feel the need to repeat laboratory studies other than a UA. UA showed +2 bacteria but there were no white blood cells or nitrites indicating this is most likely contamination. However because of his recent catheterization there is possibility this is developing infection so the urine was sent for culture and he was started on Rocephin. As reported right sided flank pain there was concern that he may have developed pyelonephritis versus kidney stone or even potential atypical presentation for right lower lobe pneumonia. A noncontrast CT was obtained which revealed no acute findings. Therefore at this time the patient is hemodynamically stable his symptoms have improved with resolution of the urinary retention and as his vitals do not suggest sepsis and his recent blood work showed no signs of MONISHA do not feel there is need for further workup in the hospital. The catheter will be kept in place to prevent reoccurrence of the obstruction and be sure on antibiotics secondary to potential for catheter induced urinary tract infection History & Record Review Discussion w/independent historian: Patient Lab Data Attestation: I reviewed the patient's lab results. Labs: Laboratory Results - last 24 hr 09/13/24 21:39 Urine Color Yellow Urine Clarity Sl. Cloudy Urine pH 6.5 Ur Specific [place] 1.010 Urine Protein 15 H Urine Glucose (UA) Normal Urine Ketones Negative Urine Occult Blood Negative Urine Nitrite Negative Urine Bilirubin Negative Urine Urobilinogen Normal Ur Leukocyte Esterase 500 H Urine RBC 10-25 SEEN Urine WBC 0 SEEN Ur Squamous Epith Cells 0 SEEN Urine Bacteria 2+ Urine Mucus 0 SEEN Radiography Diagnostic Testing: Clinical Impression(s) from Imaging Studies Abdomen/Pelvis CT 09/13/24 23:32 IMPRESSION: Bilateral lower lobe basilar atelectasis. The bladder is now collapsed around a Allison catheter in place. No calcified bladder or ureteral stone identified. No hydronephrosis. Bilateral symmetric appearing perinephric stranding is nonspecific and not significantly changed. One or more dose reduction techniques were used (e.g., Automated exposure control, adjustment of the mA and/or kV according to patient size, use of iterative reconstruction technique). Reading Location: [facility] Discharge Plan Triage Chief Complaint: Complaint ED Provider: Edu Cruz Dx/Rx/DC Orders Clinical Impression: Acute on chronic urinary retention, COPD (chronic obstructive pulmonary disease), Essential hypertension Instructions: ED Urinary Retention, Male Prescriptions: New sulfamethoxazole-trimethoprim [Bactrim DS] 800-160 mg tablet 1 tab PO BID 7 Days Qty: 14 0RF No Action gabapentin 100 mg capsule 200 mg PO DAILY hydralazine 10 mg tablet 10 mg PO BID metoprolol tartrate 25 mg tablet 25 mg PO DAILY Rx Instructions: BOTTLE SAYS BID BUT PT TAKES IT DAILY omeprazole 40 mg capsule,delayed release(DR/EC) 40 mg PO BID magnesium oxide 400 mg (241.3 mg magnesium) tablet 400 mg PO DAILY Breo Ellipta 200-25 mcg/dose blister with device 1 inh inhalation DAILY albuterol sulfate [ProAir HFA] 90 mcg/actuation HFA aerosol inhaler 2 puff inhalation Q6H PRN (Reason: shortness of breath or wheezing) atorvastatin 80 mg tablet 80 mg PO QHS Qty: 90 3RF bupropion HCl 150 MG tablet sustained-release 12 hr 150 mg PO BID Spiriva Respimat 2.5 mcg/actuation mist 2 puff INHALATION DAILY Patient Comments: INHALE 2 (TWO) puffs DIRECTED once DAILY mirtazapine 15 mg tablet 15 mg PO QHS oxycodone-acetaminophen [Endocet] 5-325 mg tablet 1 tab PO Q6H 7 Days Qty: 28 0RF aspirin 81 mg tablet,delayed release (DR/EC) 81 mg PO DAILY 30 Days Qty: 30 0RF docusate sodium [Colace] 100 mg capsule 100 mg PO DAILY 10 Days Qty: 10 0RF cyclobenzaprine 10 mg tablet 10 mg PO TID 7 Days Qty: 21 0RF calcium carbonate-vitamin D3 [Os-Naldo 500 + D3] 500 mg-15 mcg (600 unit) tablet 1 tab PO DAILY 90 Days Qty: 90 0RF ascorbic acid (vitamin C) [Vitamin C] 1,000 mg tablet 1 g PO DAILY 90 Days Qty: 90 0RF levothyroxine 88 mcg tablet 88 mcg PO DAILY Primary Care Provider: Rei Morgan Referrals: Rei Morgan DO [Primary Care Provider] - Kali Burks MD [Med Staff - Active Staff] - Activity Restrictions/Additional Instructions: Please follow-up with urology to discuss need for permanent catheter placement and take the medications as directed to help resolve any urinary tract infection. Return to the ER should you have any further concerns Print Language: Slovak Disposition Disposition: Home, Self Care Discharge Date/Time: 09/14/24 01:14
[2024-09-14 01:06] VITALS: BP 149/92; PULSE 75; RESP 18; TEMP 36.9; O2SAT 97
--- NOTE | 2024-09-14 01:13 | ED.RN ---
This RN educated pt on catheter emptying and function. Pt demonstrated teach back.
== END 2024-09-14 01:14 | disposition home or self-care (01) ==
PROVIDERS: Emergency Provider Emergency Medicine; PCP Student in an Organized Health Care Education/Training Program; Visit Provider Emergency Medicine
DX: R33.9 Retention of urine, unspecified (principal); I50.21 Acute systolic (congestive) heart failure; I11.0 Hypertensive heart disease with heart failure; J44.9 Chronic obstructive pulmonary disease, unspecified; Z87.891 Personal history of nicotine dependence; E78.00 Pure hypercholesterolemia, unspecified; K21.9 Gastro-esophageal reflux disease without esophagitis
CPT/HCPCS: 51702; 74176; 81001; 87077; 87086; 87088; 87186; 96365; 96375; 99285; A4216

== ENCOUNTER 2024-10-18 08:57 | Emergency (ER) | payer MEDICARE, MEDICAID, SELFPAY ==
[2024-10-18 08:57] VITALS: BP 176/105; PULSE 71; RESP 18; TEMP 36.8; O2SAT 100; BMI 20.7
--- NOTE | 2024-10-18 09:14 | EDS_ITS ---
HPI History of Present Illness Chief Complaint: Back Informant: patient Narrative Narrative: 64-year-old male's been having pain bilateral mid back for the past 3 weeks. He states this started after he did a lot of work cleaning out some cars. It hurts more to move, especially when he bends over to pick something up it hurts worse. Denies any pain radiating into his legs, denies any abdominal pain, or urinary symptoms but he is concerned it may be his kidneys. He does not have any specific reason to be concerned about that, other than the fact that it has been persistent. No bowel or bladder dysfunction or numbness or weakness. No direct trauma/falls. [facility] Medical History Wears glasses Cancer Alcohol use Thyroid disease Arthritis High cholesterol Back pain History of ulceration Gastric reflux Former smoker History of pain when walking History of edema History of echocardiogram History of stress test Cardiology follow-up encounter Lung nodule Acute systolic (congestive) heart failure Prostate cancer MONISHA (acute kidney injury) DDD (degenerative disc disease) Cleft palate Pure hypercholesterolemia Essential hypertension Aortic root dilatation History of non-ST elevation myocardial infarction (NSTEMI) COPD (chronic obstructive pulmonary disease) Hypertension Medical History no medical history Home Medications ?Medication ?Instructions ?Recorded ?Last Taken ?Type bupropion HCl 150 mg tablet,12 hr 150 mg PO BID 11/27/23 History sustained-release tiotropium bromide 2.5 2 puff inhalation DAILY 02/0411/28/23 02:00 History mcg/actuation mist for inhalation (Spiriva Respimat) albuterol sulfate 90 mcg/actuation 2 puff inhalation Q 6H PRN 03/06/21 11/28/23 02:00 History aerosol inhaler (ProAir HFA) shortness of breath or wh eezing fluticasone furoate 200 1 inh inhalation DAILY 03/0611/28/23 02:00 History mcg-vilanterol 25 mcg/dose inhalation powder (Breo Ellipta) gabapentin 100 mg capsule 200 mg PO DAILY 03/06/21 History hydralazine 10 mg tablet 10 mg PO BID 03/06/21 02:30 History magnesium oxide 400 mg (241.3 mg 400 mg PO DAILY 03/0611/27/23 History magnesium) tablet metoprolol tartrate 25 mg tablet 25 mg PO DAILY 11/28/23 02:30 History omeprazole 40 mg capsule,delayed 40 mg PO BID 03/06/21 11/27/23 History release atorvastatin 80 mg tablet 80 mg PO QHS #90 tabs 11/27/23 Rx mirtazapine 15 mg tablet 15 mg PO QHS depressive diso rder 11/25/23 11/27/23 Hi story ascorbic acid (vitamin C) 1,000 mg 1 g PO DAILY 90 day s #90 tabs 11/28/23 Unknown Rx tablet (Vitamin C) aspirin 81 mg tablet,delayed 81 mg PO DAILY 30 days #3 0 tabs 11/28/23 Unknown Rx release calcium 500 mg (as 1 tab PO DAILY 90 days #90 t abs 11/28/23 Unknown Rx carbonate)-vitamin D3 15 mcg (600 unit) tablet (Os-Naldo 500 + D3) cyclobenzaprine 10 mg tablet 10 mg PO TID muscle spasm 7 days 11/28/23 Unknown Rx #21 tabs docusate sodium 100 mg capsule 100 mg PO DAILY 10 days #10 caps 11/28/23 Unknown Rx (Colace) oxycodone-acetaminophen 5 mg-325 1 tab PO Q6H pain 7 d ays #28 tabs 11/28/23 Unknown Rx mg tablet (Endocet) levothyroxine 88 mcg tablet 88 mcg PO DAILY 09/13/24 U nknown History sulfamethoxazole 800 1 tab PO BID 7 days #14 tabs 09/14/24 Unknown Rx mg-trimethoprim 160 mg tablet (Bactrim DS) naproxen 500 mg tablet 500 mg PO BID PRN #10 tabs 0 10/18/24 Unknown Rx
--- NOTE | 2024-10-18 09:14 | ED.VIS.BACK ---
HPI History of Present Illness Chief Complaint: Back Informant: patient Narrative Narrative: 64-year-old male's been having pain bilateral mid back for the past 3 weeks. He states this started after he did a lot of work cleaning out some cars. It hurts more to move, especially when he bends over to pick something up it hurts worse. Denies any pain radiating into his legs, denies any abdominal pain, or urinary symptoms but he is concerned it may be his kidneys. He does not have any specific reason to be concerned about that, other than the fact that it has been persistent. No bowel or bladder dysfunction or numbness or weakness. No direct trauma/falls. [facility] Medical History Wears glasses Cancer Alcohol use Thyroid disease Arthritis High cholesterol Back pain History of ulceration Gastric reflux Former smoker History of pain when walking History of edema History of echocardiogram History of stress test Cardiology follow-up encounter Lung nodule Acute systolic (congestive) heart failure Prostate cancer MONISHA (acute kidney injury) DDD (degenerative disc disease) Cleft palate Pure hypercholesterolemia Essential hypertension Aortic root dilatation History of non-ST elevation myocardial infarction (NSTEMI) COPD (chronic obstructive pulmonary disease) Hypertension Medical History no medical history Home Medications ?Medication ?Instructions ?Recorded ?Last Taken ?Type bupropion HCl 150 mg tablet,12 hr 150 mg PO BID 10/24/20 11/27/23 History sustained-release tiotropium bromide 2.5 2 puff inhalation DAILY 02/15/21 11/28/23 02:00 History mcg/actuation mist for inhalation (Spiriva Respimat) albuterol sulfate 90 mcg/actuation 2 puff inhalation Q6H PRN 03/06/21 11/28/23 02:00 History aerosol inhaler (ProAir HFA) shortness of breath or wheezing fluticasone furoate 200 1 inh inhalation DAILY 03/06/21 11/28/23 02:00 History mcg-vilanterol 25 mcg/dose inhalation powder (Breo Ellipta) gabapentin 100 mg capsule 200 mg PO DAILY 03/06/21 11/27/23 History hydralazine 10 mg tablet 10 mg PO BID 03/06/21 11/28/23 02:30 History magnesium oxide 400 mg (241.3 mg 400 mg PO DAILY 03/06/21 11/27/23 History magnesium) tablet metoprolol tartrate 25 mg tablet 25 mg PO DAILY 03/06/21 11/28/23 02:30 History omeprazole 40 mg capsule,delayed 40 mg PO BID 03/06/21 11/27/23 History release atorvastatin 80 mg tablet 80 mg PO QHS #90 tabs 06/19/21 11/27/23 Rx mirtazapine 15 mg tablet 15 mg PO QHS depressive disorder 11/25/23 11/27/23 History ascorbic acid (vitamin C) 1,000 mg 1 g PO DAILY 90 days #90 tabs 11/28/23 Unknown Rx tablet (Vitamin C) aspirin 81 mg tablet,delayed 81 mg PO DAILY 30 days #30 tabs 11/28/23 Unknown Rx release calcium 500 mg (as 1 tab PO DAILY 90 days #90 tabs 11/28/23 Unknown Rx carbonate)-vitamin D3 15 mcg (600 unit) tablet (Os-Naldo 500 + D3) cyclobenzaprine 10 mg tablet 10 mg PO TID muscle spasm 7 days 11/28/23 Unknown Rx #21 tabs docusate sodium 100 mg capsule 100 mg PO DAILY 10 days #10 caps 11/28/23 Unknown Rx (Colace) oxycodone-acetaminophen 5 mg-325 1 tab PO Q6H pain 7 days #28 tabs 11/28/23 Unknown Rx mg tablet (Endocet) levothyroxine 88 mcg tablet 88 mcg PO DAILY 09/13/24 Unknown History sulfamethoxazole 800 1 tab PO BID 7 days #14 tabs 09/14/24 Unknown Rx mg-trimethoprim 160 mg tablet (Bactrim DS) naproxen 500 mg tablet 500 mg PO BID PRN #10 tabs 10/18/24 Unknown Rx Allergy/AdvReac Type Severity Reaction Status Date / Time bee venom protein (honey bee) Allergy Anaphylaxis Verified 10/18/24 08:59 Family History Mother Thyroid disorder Cancer Ovarian Father Cancer Prostate Grandmother CVA (cerebral vascular accident) Surgical History History of dental surgery Hx of surgical procedure History of tonsillectomy History of ankle surgery History of hernia repair History of transurethral resection of prostate (~12/15/20) Surgical History no surgical history Social History Smoking Status: Former smoker alcohol intake: current details: 12 Cans of Beer per week substance use type: marijuana ROS ROS ED Constitutional Constitutional ED: Denies chills or fever(s) Gastrointestinal Gastrointestinal: Denies abdominal pain, constipation, fecal incontinence, nausea or vomiting Genitourinary Genitourinary ED: Reports other Details: no urinary retention ; Denies abdominal discomfort or urinary incontinence Musculoskeletal Musculoskeletal: Reports as per HPI and back pain; Denies neck pain Integumentary Denies rash or wounds Neurologic Neurologic: Denies headache(s), paresthesias or weakness EXAM Physical Exam Const Vital Signs: 10/18/24 08:57 Temperature 98.2 F Temperature Source Oral Pulse Rate 71 Respiratory Rate 18 Blood Pressure 176/105 H Blood Pressure Mean 128 Pulse Ox 100 Oxygen Delivery Method Room Air Positive well nourished and well developed General Appearance ED: well developed and NAD HEENT Negative for trauma or tenderness Eyes PERRL and EOMs intact bilaterally Neck full ROM and supple Resp normal respiratory effort and clear to auscultation bilaterally GI normal to inspection, nondistended, normoactive bowel sounds, soft to palpation and non-tender Back/Spine normal to inspection Thoracic Spine / Upper Back: paraspinal muscle tenderness bilateral Lumbar Spine / Lower Back: ROM limited and straight leg raise negative bilaterally; Negative for lumbar spinal tenderness Extremity normal to inspection, full ROM and no pedal edema Neuro oriented x3, no sensory deficits noted and gait normal Sensorium / Orientation: alert Motor Exam: strength 5/5 throughout and clonus absent Deep Tendon Reflexes: Rt Patellar (L4): 2+, Lt Patellar (L4): 2+, Rt Ankle (S1): 2+ and Lt Ankle (S1): 2+ Deep Tendon Reflexes Back: Rt Patellar (L4): 2+, Lt Patellar (L4): 2+, Rt Ankle (S1): 2+ and Lt Ankle (S1): 2+ Plantar Reflex: Downgoing: bilateral Psych mental status grossly normal and thought process normal Skin no rashes or lesions noted and no wounds MDM MDM MDM Narrative Medical decision making narrative: Urinalysis unremarkable I discussed with patient. And while the Toradol really helped his pain. Going to prescribe him short course of NSAIDs as I think it is musculoskeletal. Lab Data Attestation: I reviewed the patient's lab results. Labs: Laboratory Results - last 24 hr 10/18/24 09:21 Urine Color Yellow Urine Clarity Clear Urine pH 7.0 Ur Specific [place] 1.010 Urine Protein 30 H Urine Glucose (UA) Normal Urine Ketones Negative Urine Occult Blood Negative Urine Nitrite Negative Urine Bilirubin Negative Urine Urobilinogen Normal Ur Leukocyte Esterase 25 H Urine RBC 0 SEEN Urine WBC 0-5 SEEN Ur Squamous Epith Cells 0-5 SEEN Urine Bacteria 0 SEEN Urine Mucus 0 SEEN Discharge Plan Triage Chief Complaint: Back ED Provider: Tyrell Gil Dx/Rx/DC Orders Clinical Impression: Acute thoracic myofascial strain Instructions: ED Thoracic Spine Strain Prescriptions: New naproxen 500 mg tablet 500 mg PO BID PRN Qty: 10 0RF No Action gabapentin 100 mg capsule 200 mg PO DAILY hydralazine 10 mg tablet 10 mg PO BID metoprolol tartrate 25 mg tablet 25 mg PO DAILY Rx Instructions: BOTTLE SAYS BID BUT PT TAKES IT DAILY omeprazole 40 mg capsule,delayed release(DR/EC) 40 mg PO BID magnesium oxide 400 mg (241.3 mg magnesium) tablet 400 mg PO DAILY Breo Ellipta 200-25 mcg/dose blister with device 1 inh inhalation DAILY albuterol sulfate [ProAir HFA] 90 mcg/actuation HFA aerosol inhaler 2 puff inhalation Q6H PRN (Reason: shortness of breath or wheezing) atorvastatin 80 mg tablet 80 mg PO QHS Qty: 90 3RF bupropion HCl 150 MG tablet sustained-release 12 hr 150 mg PO BID Spiriva Respimat 2.5 mcg/actuation mist 2 puff INHALATION DAILY Patient Comments: INHALE 2 (TWO) puffs DIRECTED once DAILY mirtazapine 15 mg tablet 15 mg PO QHS oxycodone-acetaminophen [Endocet] 5-325 mg tablet 1 tab PO Q6H 7 Days Qty: 28 0RF aspirin 81 mg tablet,delayed release (DR/EC) 81 mg PO DAILY 30 Days Qty: 30 0RF docusate sodium [Colace] 100 mg capsule 100 mg PO DAILY 10 Days Qty: 10 0RF cyclobenzaprine 10 mg tablet 10 mg PO TID 7 Days Qty: 21 0RF calcium carbonate-vitamin D3 [Os-Naldo 500 + D3] 500 mg-15 mcg (600 unit) tablet 1 tab PO DAILY 90 Days Qty: 90 0RF ascorbic acid (vitamin C) [Vitamin C] 1,000 mg tablet 1 g PO DAILY 90 Days Qty: 90 0RF levothyroxine 88 mcg tablet 88 mcg PO DAILY sulfamethoxazole-trimethoprim [Bactrim DS] 800-160 mg tablet 1 tab PO BID 7 Days Qty: 14 0RF Primary Care Provider: Rei Morgan Referrals: Rei Morgan DO [Primary Care Provider] - 1 Week if not improving Print Language: Zambian Disposition Disposition: Home, Self Care
[2024-10-18] MEDS: Ketorolac 30 MG/ML Syringe IM (09:18)
[2024-10-18 09:26] LABS: Bacteria 0 SEEN /hpf (None Seen); Mucous, Urine 0 SEEN /hpf (<or=2+); Red Blood Cells-Urine 0 SEEN /hpf (0-5)
[2024-10-18 09:47] LABS: Color, Urine Yellow (Yellow); Glucose, Dipstick Normal (Normal); Ketone-Dipstick Negative (Negative); Leukocyte Esterase-Dipstick 25 /ul (Negative); Nitrite-Dipstick Negative (Negative); Occult Blood-Urine Negative /ul (Negative); Protein-Dipstick 30 mg/dl (Negative); Urine Bilirubin Dipstick Negative (Negative); Urine Clarity Clear (Clear); Urine Urobilinogen Normal (Normal)
[2024-10-18 09:57] LABS: Squamous Epithelial Cells - UA 0-5 SEEN /hpf (0-5); White Blood Cells 0-5 SEEN /hpf (0-5)
[2024-10-18 10:50] VITALS: BP 128/61; PULSE 68; RESP 18; TEMP 36.6; O2SAT 99
== END 2024-10-18 10:51 | disposition home or self-care (01) ==
PROVIDERS: Emergency Provider Emergency Medicine; PCP Student in an Organized Health Care Education/Training Program; Visit Provider Emergency Medicine
DX: S29.019A Strain of muscle and tendon of unspecified wall of thorax, initial encounter (principal); I11.0 Hypertensive heart disease with heart failure; I50.21 Acute systolic (congestive) heart failure; J44.9 Chronic obstructive pulmonary disease, unspecified; Z87.891 Personal history of nicotine dependence; E78.00 Pure hypercholesterolemia, unspecified; X50.1XXA Overexertion from prolonged static or awkward postures, initial encounter; Y99.0 Civilian activity done for income or pay
CPT/HCPCS: 81001; 96372; 99282

== ENCOUNTER 2024-10-22 14:32 | Emergency (ER) | payer MEDICARE, MEDICAID, SELFPAY ==
[2024-10-22 14:33] VITALS: BP 160/89; PULSE 81; RESP 16; TEMP 36.3; O2SAT 98; BMI 21.1
--- NOTE | 2024-10-22 15:08 | CT_ITS ---
PROCEDURE: CTA CHEST W/WO CONTRAST 10/22/2024 REASON FOR EXAM: (R) PULMONARY EMBOLISM TECHNIQUE: CTA axial imaging of the chest with intravenous contrast. Coronal and Sagittal reconstruction series were provided. 3D, 3D post processing, 3D reconstructions, Maximum intensity projection (MIPs) Volume rendering and Shaded surface rendering was provided. PATIENT PREPARATION: Per protocol CONTRAST: Isovue 370 VOLUME: 75 mL One or more dose reduction techniques were used (e.g., Automated exposure control, adjustment of the mA and/or kV according to patient size, use of iterative reconstruction technique). RADIATION DOSE SUMMARY: CTDlvol: 5 mGy DLP: 202.26 mGycm . COMPARISON: None FINDINGS: Hardware: None Lymph nodes: No lymph nodes are seen. Heart: Minimal coronary artery calcification present. Thoracic Aorta: No thoracic aortic aneurysm or dissection. Pulmonary Vessels: No large central pulmonary emboli are identified. Contrast timing is suboptimal for evaluation of more distal branches. Most Proximal Level of Embolus (if embolus present): Lungs and Airways: Mild increased markings at the lung bases suggestive of atelectasis and/or early infiltrate. Pleura: Unremarkable. Upper Abdomen: Findings suggestive of a 2.7 cm cyst in the upper pole of the right kidney. Bones: Degenerative changes of the thoracic spine. CT/CTA Chest W/WO Contrast IMPRESSION: No evidence of pulmonary embolism. Increased markings at the lung bases suggestive of atelectasis and/or early inf iltrate. Reading Location: [id number]
--- NOTE | 2024-10-22 15:11 | EX.ED.GENINJ ---
HPI History of Present Illness Chief Complaint: Back Informant: patient Narrative Narrative: 64-year-old male presenting to the emergency room with right-sided chest pain. Patient states for the past 4 weeks she has had pain in the right mid ribs starting around the angle of the mandible wrapping around towards the front. It is intermittent and dependent on what type of movement he is doing. Described as sharp. Occasionally a pressure. He states he believed he hurt it while checking the pressures on the tires of his car/cleaning out the car. He states that he was seen recently for it was felt to be a muscular injury but it continues to bother him so today he went to [facility] where they recommended he come to the hospital to rule out a pulmonary embolism. He denies any DVT or PE risk factors. He denies any fever rash cough. When asked what type of medical problems he has he states that he has an enlarged prostate and prostate cancer. Review of his chart shows that he has a history of CHF hypertension hypercholesterolemia COPD (former smoker) and aortic root dilatation. [facility] Medical History Wears glasses Cancer Alcohol use Thyroid disease Arthritis High cholesterol Back pain History of ulceration Gastric reflux Former smoker History of pain when walking History of edema History of echocardiogram History of stress test Cardiology follow-up encounter Lung nodule Acute systolic (congestive) heart failure Prostate cancer MONISHA (acute kidney injury) DDD (degenerative disc disease) Cleft palate Pure hypercholesterolemia Essential hypertension Aortic root dilatation History of non-ST elevation myocardial infarction (NSTEMI) COPD (chronic obstructive pulmonary disease) Hypertension Home Medications ?Medication ?Instructions ?Recorded ?Last Taken ?Type bupropion HCl 150 mg tablet,12 hr 150 mg PO BID 10/24/20 11/27/23 History sustained-release tiotropium bromide 2.5 2 puff inhalation DAILY 02/15/21 11/28/23 02:00 History mcg/actuation mist for inhalation (Spiriva Respimat) albuterol sulfate 90 mcg/actuation 2 puff inhalation Q6H PRN 03/06/21 11/28/23 02:00 History aerosol inhaler (ProAir HFA) shortness of breath or wheezing fluticasone furoate 200 1 inh inhalation DAILY 03/06/21 11/28/23 02:00 History mcg-vilanterol 25 mcg/dose inhalation powder (Breo Ellipta) gabapentin 100 mg capsule 200 mg PO DAILY 03/06/21 11/27/23 History hydralazine 10 mg tablet 10 mg PO BID 03/06/21 11/28/23 02:30 History magnesium oxide 400 mg (241.3 mg 400 mg PO DAILY 03/06/21 11/27/23 History magnesium) tablet metoprolol tartrate 25 mg tablet 25 mg PO DAILY 03/06/21 11/28/23 02:30 History omeprazole 40 mg capsule,delayed 40 mg PO BID 03/06/21 11/27/23 History release atorvastatin 80 mg tablet 80 mg PO QHS #90 tabs 06/19/21 11/27/23 Rx mirtazapine 15 mg tablet 15 mg PO QHS depressive disorder 11/25/23 11/27/23 History ascorbic acid (vitamin C) 1,000 mg 1 g PO DAILY 90 days #90 tabs 11/28/23 Unknown Rx tablet (Vitamin C) aspirin 81 mg tablet,delayed 81 mg PO DAILY 30 days #30 tabs 11/28/23 Unknown Rx release calcium 500 mg (as 1 tab PO DAILY 90 days #90 tabs 11/28/23 Unknown Rx carbonate)-vitamin D3 15 mcg (600 unit) tablet (Os-Naldo 500 + D3) cyclobenzaprine 10 mg tablet 10 mg PO TID muscle spasm 7 days 11/28/23 Unknown Rx #21 tabs docusate sodium 100 mg capsule 100 mg PO DAILY 10 days #10 caps 11/28/23 Unknown Rx (Colace) oxycodone-acetaminophen 5 mg-325 1 tab PO Q6H pain 7 days #28 tabs 11/28/23 Unknown Rx mg tablet (Endocet) levothyroxine 88 mcg tablet 88 mcg PO DAILY 09/13/24 Unknown History sulfamethoxazole 800 1 tab PO BID 7 days #14 tabs 09/14/24 Unknown Rx mg-trimethoprim 160 mg tablet (Bactrim DS) naproxen 500 mg tablet 500 mg PO BID PRN #10 tabs 10/18/24 Unknown Rx Allergy/AdvReac Type Severity Reaction Status Date / Time bee venom protein (honey bee) Allergy Anaphylaxis Verified 10/22/24 14:33 Family History Mother Thyroid disorder Cancer Ovarian Father Cancer Prostate Grandmother CVA (cerebral vascular accident) Surgical History History of dental surgery Hx of surgical procedure History of tonsillectomy History of ankle surgery History of hernia repair History of transurethral resection of prostate (~12/15/20) Social History Smoking Status: Former smoker alcohol intake: current details: 12 Cans of Beer per week substance use type: marijuana ROS ROS ED Constitutional Constitutional ED: Denies chills, fever(s) or weight loss Eyes Eyes: Denies change in vision or diplopia ENT ENT ED: Denies ear pain, rhinorrhea or sore throat Cardiovascular Cardiovascular: Reports chest pain; Denies orthopnea, palpitations or racing heartbeat Respiratory/Chest Respiratory/Chest: Denies cough, dyspnea or orthopnea Gastrointestinal Gastrointestinal: Denies abdominal pain, diarrhea, nausea or vomiting Genitourinary Genitourinary ED: Denies dysuria, hematuria or urinary frequency Musculoskeletal Musculoskeletal: Reports back pain; Denies arthralgias, myalgias or neck pain Integumentary Denies abscess or rash Neurologic Neurologic: Denies headache(s) or weakness Psychiatric Psychiatric: Denies anxiety, depression, suicidal ideation or suicidal thoughts Endocrine Endocrinology: Denies polydipsia, polyphagia or polyuria Allergic/Immunologic Allergic/Immunologic ED: Denies mouth swelling, tongue swelling or urticaria EXAM Physical Exam Const Vital Signs: 10/22/24 14:33 Temperature 97.3 F L Temperature Source Temporal Pulse Rate 81 Respiratory Rate 16 Blood Pressure 160/89 H Blood Pressure Mean 112 Pulse Ox 98 Oxygen Delivery Method Room Air Positive well nourished and well developed General Appearance ED: well developed and NAD HEENT Reports normocephalic, head/scalp atraumatic and moist mucous membranes Eyes PERRL and EOMs intact bilaterally Neck no lymphadenopathy, supple and no JVD Chest Wall Chest Narrative: Mild tenderness to palpation over the right mid posterior ribs at the angle of the rib extending anteriorly through the mid axillary line to the anterior aspect. I do not appreciate any rash. There is no subcutaneous air health. Resp normal respiratory effort and clear to auscultation bilaterally Cardio regular rate, regular rhythm and no murmurs GI normal to inspection, nondistended, normoactive bowel sounds and non-tender Palpation: soft Back/Spine no CVA tenderness and normal ROM Extremity normal to inspection General Extremety ED: Negative for edema General Extremity: Negative for edema Neuro oriented x3 and CN's II-XII intact bilaterally Sensorium / Orientation: alert Motor Exam: strength 5/5 throughout Psych mental status grossly normal Mood & Affect: Negative for depressed or tearful Skin no rashes or lesions noted and no wounds MDM MDM MDM Narrative Medical decision making narrative: Differential diagnosis includes chest wall strain rib fracture shingles pleural effusion pneumonia pneumothorax pleurisy pulmonary embolism Basic blood work showed a white count of 9.8 hemoglobin 11.8 and platelet count of 268. CTA of the chest demonstrated no evidence of pulmonary embolism. Please see radiologist read for full details. I do not believe that he clinically has pneumonia. I do not see an obvious emergent cause for his pain. Symptoms have been present for 4 weeks and been intermittent mostly with certain types of movement. Most likely chest wall related. Would recommend conservative treatment. Follow-up with primary care History & Record Review Discussion w/independent historian: Patient Additional record(s) reviewed:: Prior inpatient record Lab Data Attestation: I reviewed the patient's lab results. Labs: Laboratory Results - last 24 hr 10/22/24 15:27 WBC 9.8 RBC 3.92 L Hgb 11.8 L Hct 35.0 L MCV 89.3 MCH 30.1 MCHC 33.7 RDW Std Deviation 50.8 H RDW Coeff of Cr 15.6 H Plt Count 268 MPV 9.9 Immature Gran % (Auto) 1.800 H Neut % (Auto) 60.6 Lymph % (Auto) 22.0 Baldwin % (Auto) 11.4 H Eos % (Auto) 3.2 Baso % (Auto) 1.0 Absolute Neuts (auto) 5.9 Absolute Lymphs (auto) 2.16 Nucleated RBC % 0 Sodium 137 Potassium 4.4 Chloride 101 Carbon Dioxide 25.1 Anion Gap 10 BUN 18 Creatinine 0.89 Estim Creat Clear Calc 75.76 Est GFR (MDRD) Non-Af 96 BUN/Creatinine Ratio 20.0 Glucose 96 Calcium 9.3 Troponin T High Sens 7 Radiography Diagnostic Testing: Clinical Impression(s) from Imaging Studies Chest CTA 10/22/24 15:08 IMPRESSION: No evidence of pulmonary embolism. Increased markings at the lung bases suggestive of atelectasis and/or early infiltrate. Reading Location: [id number] Discharge Plan Triage Chief Complaint: Back ED Provider: Ede Reddy Dx/Rx/DC Orders Clinical Impression: Right-sided chest wall pain, Chest pain Instructions: ED Chest Pain, Noncardiac Prescriptions: No Action gabapentin 100 mg capsule 200 mg PO DAILY hydralazine 10 mg tablet 10 mg PO BID metoprolol tartrate 25 mg tablet 25 mg PO DAILY Rx Instructions: BOTTLE SAYS BID BUT PT TAKES IT DAILY omeprazole 40 mg capsule,delayed release(DR/EC) 40 mg PO BID magnesium oxide 400 mg (241.3 mg magnesium) tablet 400 mg PO DAILY Breo Ellipta 200-25 mcg/dose blister with device 1 inh inhalation DAILY albuterol sulfate [ProAir HFA] 90 mcg/actuation HFA aerosol inhaler 2 puff inhalation Q6H PRN (Reason: shortness of breath or wheezing) atorvastatin 80 mg tablet 80 mg PO QHS Qty: 90 3RF bupropion HCl 150 MG tablet sustained-release 12 hr 150 mg PO BID Spiriva Respimat 2.5 mcg/actuation mist 2 puff INHALATION DAILY Patient Comments: INHALE 2 (TWO) puffs DIRECTED once DAILY mirtazapine 15 mg tablet 15 mg PO QHS oxycodone-acetaminophen [Endocet] 5-325 mg tablet 1 tab PO Q6H 7 Days Qty: 28 0RF aspirin 81 mg tablet,delayed release (DR/EC) 81 mg PO DAILY 30 Days Qty: 30 0RF docusate sodium [Colace] 100 mg capsule 100 mg PO DAILY 10 Days Qty: 10 0RF cyclobenzaprine 10 mg tablet 10 mg PO TID 7 Days Qty: 21 0RF calcium carbonate-vitamin D3 [Os-Naldo 500 + D3] 500 mg-15 mcg (600 unit) tablet 1 tab PO DAILY 90 Days Qty: 90 0RF ascorbic acid (vitamin C) [Vitamin C] 1,000 mg tablet 1 g PO DAILY 90 Days Qty: 90 0RF levothyroxine 88 mcg tablet 88 mcg PO DAILY sulfamethoxazole-trimethoprim [Bactrim DS] 800-160 mg tablet 1 tab PO BID 7 Days Qty: 14 0RF naproxen 500 mg tablet 500 mg PO BID PRN Qty: 10 0RF Primary Care Provider: Rei Morgan Referrals: Rei Morgan DO [Primary Care Provider] - 1 Week Print Language: Nepalese Disposition Disposition: Home, Self Care
[2024-10-22 15:40] LABS: Absolute Lymphocyte Count 2.16 X10^3/uL (0.83-4.51); Absolute Neutrophil Count 5.9 X10^3/uL (2.0-7.7); Eosinophil# 0.31 X10^3/uL; Eosinophils% 3.2 % (0-5); Hemoglobin 11.8 g/dL (13.0-16.5); Lymphocyte # 2.16 X10^3/ul (0.83-4.51); Mean Corp Hgb Conc 33.7 g/dL (32-36); Mean Corpuscular Hgb 30.1 pg (27.0-32.0); Mean Corpuscular Volume 89.3 fL (80-94); Mean Platelet Vol. 9.9 fl (6.2-12.0); Monocyte# 1.12 X10^3/uL; Monocyte% 11.4 % (0-10); NRBC Flagged by Analyzer 0 % (0-5); Neutrophil # 5.93 X10^3/uL (2.7-7.7); Neutrophil % 60.6 % (47-70); Platelet Count 268 K/mm3 (150-450); RBC Distribution Width CV 15.6 % (11.6-14.6); RBC Distribution Width SD 50.8 fl (35.1-43.9); Red Blood Count 3.92 M/mm3 (4.6-6.2); White Blood Count 9.8 K/mm3 (4.4-11.0)
[2024-10-22 16:21] LABS: Anion Gap 10 (5-15); BUN 18 mg/dL (4-19); Calcium,Total 9.3 mg/dL (7.6-11.0); Carbon Dioxide 25.1 mmol/L (21.0-32.0); Chloride 101 mmol/L (98-108); Creatinine, Serum 0.89 mg/dL (0.70-1.20); EST Glomerular Filtration Rate 96 (>60); Estimated Creatinine Clearance 75.76 ml/min (50-250); Glucose 96 mg/dL (70-99); Potassium 4.4 mmol/L (3.3-5.1); Sodium Level 137 mmol/L (133-145)
[2024-10-22 16:32] VITALS: BP 142/87
[2024-10-22 16:34] LABS: Troponin T High Sensitivity 7 ng/L (<=22)
[2024-10-22 16:51] VITALS: BP 142/87; PULSE 81; RESP 16; TEMP 36.3; O2SAT 98
== END 2024-10-22 16:57 | disposition home or self-care (01) ==
PROVIDERS: Emergency Provider Emergency Medicine; PCP Student in an Organized Health Care Education/Training Program; Visit Provider Emergency Medicine
DX: R07.89 Other chest pain (principal); I11.0 Hypertensive heart disease with heart failure; I50.20 Unspecified systolic (congestive) heart failure; J44.9 Chronic obstructive pulmonary disease, unspecified; E78.00 Pure hypercholesterolemia, unspecified; I25.2 Old myocardial infarction; I77.819 Aortic ectasia, unspecified site; E07.9 Disorder of thyroid, unspecified; K21.9 Gastro-esophageal reflux disease without esophagitis; Z85.46 Personal history of malignant neoplasm of prostate; Z79.82 Long term (current) use of aspirin; Z79.890 Hormone replacement therapy; Z79.899 Other long term (current) drug therapy; Z87.891 Personal history of nicotine dependence
CPT/HCPCS: 71275; 80048; 84484; 85025; 99282; Q9967; A4216